=== PATIENT | female | born 1950 | race Caucasian/White ===

== ENCOUNTER → 2017-09-15 09:36 | Outpatient (CLI) | payer MEDICARE, SELFPAY ==
--- NOTE | 2017-09-15 09:40 | CDU_ITS ---
Reason For Study: Carotid stenosis Rt. Velocities/BP Lt. Velocities/BP Prox CCA 96.7/22.9 cm/sec. Prox CCA 97.9/28.7 cm/sec. Mid CCA 84.4/17.6 cm/sec. Mid CCA 98.5/26.4 cm/sec. Dist CCA 72.7/22.3 cm/sec. Dist CCA 93.8/28.1 cm/sec. Prox ICA 70.4/21.1 cm/sec. Prox ICA 72.1/21.7 cm/sec. Mid ICA 71.5/23.5 cm/sec. Mid ICA 89.7/28.7 cm/sec. Dist ICA 77.4/26.4 cm/sec. Dist ICA 79.7/25.8 cm/sec. Rt. ICA/CCA = .92. Lt. ICA/CCA = .91. Prox ECA 95.6/18.8 cm/sec. Prox ECA 91.5/16.4 cm/sec. Rt. Vert. 31.2/7.1 cm/sec. Lt. Vert. 50.4/21.1 cm/sec. Right Extracranial There is intimal thickening but no significant atherosclerotic plaque noted in the right common carotid artery. There is intimal thickening but no significant atherosclerotic plaque noted in the right internal carotid artery. There is intimal thickening but no significant atherosclerotic plaque noted in the right external carotid artery. Antegrade flow is noted in the right vertebral artery. Left Extracranial There is intimal thickening but no significant atherosclerotic plaque noted in the left common carotid artery. There is intimal thickening but no significant atherosclerotic plaque noted in the left internal carotid artery. There is intimal thickening but no significant atherosclerotic plaque noted in the left external carotid artery. Antegrade flow is noted in the left vertebral artery. There is heterogeneous, irregular atherosclerotic plaque noted in the left bulb. Procedure Carotid Duplex [id number]. Exam performed in department. Interpretation Summary Mild (<50%) stenosis right extracranial internal carotid. Mild (<50%) stenosis left extracranial internal carotid. Flow within the vertebral arteries is antegrade bilaterally. Ordering Physician: Rafaela Baron Referring Physician: Rafaela Baron Performed By: Dennise Wills RVT
== END ==
PROVIDERS: Family Provider Internal Medicine; PCP Internal Medicine; Visit Provider Internal Medicine
DX: I65.22 Occlusion and stenosis of left carotid artery (principal)
CPT/HCPCS: 93880

== ENCOUNTER → 2017-11-02 08:50 | Outpatient (CLI) | payer MEDICARE, SELFPAY ==
--- NOTE | 2017-11-02 08:52 | BI_ITS ---
MAMMOGRAPHY - BILATERAL SCREENING 3-D O[place] SYNTHESIS REASON FOR EXAM: Female, 67 years old. Bilateral Screening 3-D tomosynthesis PERTINENT HISTORY: No significant family history. TECHNIQUE: 2-D mammograms and 3-D [place] synthesis of the breast (s) were performed. CAD was performed. COMPARISON: October 31, 2016. FINDINGS: The breast composition is composed of scattered fibroglandular density. Scattered benign calcifications are seen. No dense spiculated masses or suspicious microcalcifications are identified. No architectural distortion is identified. There is no skin thickening or retraction. There are typically benign appearing calcifications bilaterally. There has been no significant change since the prior study. BI/SCREENING MAMM (CAD), BILAT IMPRESSION: No mammographic signs of malignancy. Routine yearly mammograms recommended. ASSESSMENT CATEGORY: BIRADS Category 2: Benign. A letter regarding these results will be sent to the patient by the facility within 30 days. FOLLOW UP RECOMMENDATION: Yearly follow up mammogram recommended. (A) Approximately 10% of breast cancers are not detected by mammography. A normal mammogram should not delay biopsy of a clinically suspicious abnormality. Electronically Signed: René Saini MD at 10:18 EDT , Service support ,
== END ==
PROVIDERS: Family Provider Internal Medicine; PCP Internal Medicine; Visit Provider Internal Medicine
DX: Z12.31 Encounter for screening mammogram for malignant neoplasm of breast (principal)
CPT/HCPCS: 77063; 77067

== ENCOUNTER → 2018-07-12 10:34 | Outpatient (CLI) | payer MEDICARE, SELFPAY ==
--- NOTE | 2018-07-12 10:40 | RAD_ITS ---
STUDY: X-RAY - RIGHT FOOT CLINICAL: Female, 67 years old. Pain at the base of the fifth toe TECHNIQUE: 3 view(s) of the foot. COMPARISON: None. FINDINGS: Normal talus, calcaneus, and tarsal bones. Normal visualized subtalar, talonavicular, calcaneocuboid, tarsal and tarsometatarsal articulations. Normal metatarsi. There is degenerative arthrosis of the metatarsophalangeal joint of the hallux . Normal tibial and fibular sesamoid bones. Normal interphalangeal joint of the great toe. Normal phalanges of the great toe. Normal second through fifth metatarsophalangeal joints. Normal interphalangeal joints and phalanges of the lesser toes. The soft tissue structures are unremarkable. RAD/Foot min 3 Views IMPRESSION: 1. No fracture or erosive process. 2. Osteoarthrosis of the first MTP joint. Electronically Signed: Ja Jung MD at 13:04 EST , Service support ,
== END ==
PROVIDERS: Family Provider Internal Medicine; PCP Internal Medicine; Visit Provider Internal Medicine
DX: M79.671 Pain in right foot (principal)
CPT/HCPCS: 73630

== ENCOUNTER → 2018-10-18 | Outpatient (CLI) | payer MEDICARE, SELFPAY ==
--- NOTE | 2018-10-18 12:58 | CDU_ITS ---
Reason For Study: Stenosis Rt. Velocities/BP Lt. Velocities/BP Prox CCA 92/18 cm/sec. Prox CCA 100/25 cm/sec. Mid CCA 76/15 cm/sec. Mid CCA 84/20 cm/sec. Dist CCA 64/18 cm/sec. Dist CCA 83/21 cm/sec. Prox ICA 59/18 cm/sec. Prox ICA 68/16 cm/sec. Mid ICA 71/23 cm/sec. Mid ICA 82/25 cm/sec. Dist ICA 66/23 cm/sec. Dist ICA 79/30 cm/sec. Rt. ICA/CCA = 0.9. Lt. ICA/CCA = 1.0. Prox ECA 95/12 cm/sec. Prox ECA 87/8 cm/sec. Rt. Vert. 33/6 cm/sec. Lt. Vert. 81/22 cm/sec. Right Extracranial There is intimal thickening but no significant atherosclerotic plaque noted in the right common carotid artery. There is homogeneous, smooth atherosclerotic plaque noted in the right internal carotid artery. There is intimal thickening but no significant atherosclerotic plaque noted in the right external carotid artery. Antegrade flow is noted in the right vertebral artery. Left Extracranial There is intimal thickening but no significant atherosclerotic plaque noted in the left common carotid artery. There is heterogeneous, irregular atherosclerotic plaque noted in the left internal carotid artery. There is no significant atherosclerotic plaque noted in the left external carotid artery. Antegrade flow is noted in the left vertebral artery. Procedure Carotid Duplex [id number]. Exam performed in department. Interpretation Summary Mild (<50%) stenosis right extracranial internal carotid. Mild (<50%) stenosis left extracranial internal carotid. Flow within the vertebral arteries is antegrade bilaterally. Ordering Physician: Rafaela Baron Referring Physician: Rafaela Baron Performed By: Raquel Smith, CELY, RVT
== END | disposition home or self-care (01) ==
LOC: CVS 12:50
PROVIDERS: Family Provider Internal Medicine; PCP Internal Medicine; Referring Provider Internal Medicine; Visit Provider Internal Medicine
DX: I65.22 Occlusion and stenosis of left carotid artery (principal)
CPT/HCPCS: 93880

== ENCOUNTER → 2018-11-11 | Outpatient (CLI) | payer MEDICARE, SELFPAY ==
--- NOTE | 2018-11-11 11:55 | BI_ITS ---
MAMMOGRAPHY - BILATERAL SCREENING REASON FOR EXAM: Female, 68 years old. Routine annual screening examination. PERTINENT HISTORY: Non-contributory. TECHNIQUE: Digital bilateral breast paulette (3D mammographic acquisition) in the CC and MLO projections. 2-D mediolateral oblique (MLO) and craniocaudad (CC) views of both breasts were obtained. CAD: Full Field Digital Mammography with Computer Added Detection was performed. COMPARISON: Comparison is made with prior study dated November 02, 2017 and October 31, 2016. FINDINGS: Breast Composition: There are scattered areas of fibroglandular density. There are no dominant masses or suspicious calcifications. Stable scattered secretory calcifications. No other significant abnormalities are identified. There has been no significant change since the prior study. BI/SCREENING MAMM (CAD), BILAT IMPRESSION: Stable bilateral screening mammogram. Yearly follow-up mammogram recommended. (A) ASSESSMENT CATEGORY: BIRADS Category 2: Benign. A letter regarding these results will be sent to the patient by the facility within 30 days. Approximately 10% of breast cancers are not detected by mammography. A normal mammogram should not delay biopsy of a clinically suspicious abnormality. [id number] Electronically Signed: Owen Whiting, at 13:46 EDT , Service support ,
--- NOTE | 2018-11-15 09:16 | CA.SCORE ---
Calcium Scoring Date of Study:: 11/11/18 Coronary Calcium Scoring: High-resolution Computed Tomographic imaging of the chest was performed on [11/11/2018], with particular attention paid to the coronary arteries. Images from the examination were analyzed for the presence and extent of coronary artery calcification , using coronary calcium quantification software. The patient tolerated the procedure well and there were no complications. The results of the coronary calcification analysis are provided below. - Findings Left Main (LM): 271 Left Anterior Descending (LAD): 336 Left Circumflex (LCX): 86 Right Coronary Artery (RCA): 453 Total Agatston Score: 1,146 - Conclusion Calcium Scoring Interpretation: Calcium Score Interpretation 0 No identifiable atherosclerotic plaque. Very low cardiovascular disease risk. <5% chance of presence coronary artery disease A Negative Examination 1-10 Minimal Plaque burden. Significant coronary artery disease very unlikely. 11-100 Mild plaque burden. Likely mild or minimal coronary atherosclerosis. 101-400 Moderate plaque burden Moderate non-obstructive coronary artery disease highly likely. Over 400 Extensive plaque burden. High likelihood of at least one significant coronary stenosis (>50% diameter) The total calcium score (1146) is above the 90th percentile for women between the ages of 65 and 69. (Exact percentile calculated to be 99%; this means 98% of the population has a lower calcium score and 1% of the population is a higher calcium score than this patient.) An evaluation of cardiac risk should include an assessment of all conventional risk factors, and the scores and percentile rankings reported herein should be evaluated in this context.
== END | disposition home or self-care (01) ==
PROVIDERS: Family Provider Internal Medicine; PCP Internal Medicine; Referring Provider Internal Medicine; Visit Provider Internal Medicine
DX: Z12.31 Encounter for screening mammogram for malignant neoplasm of breast (principal)
CPT/HCPCS: 77063; 77067

== ENCOUNTER → 2018-11-11 | Outpatient (CLI) | payer SELFPAY ==
--- NOTE | 2018-11-11 12:28 | CT_ITS ---
STUDY: CARDIAC CALCIUM SCORING - CT CHEST REASON FOR EXAM: Female, 68 years old. Coronary calcium screening, over read. RADIATION DOSAGE (If Supplied By Facility): DLP = ( 243.79 ) mGycm TECHNIQUE: Axial non-enhanced images were acquired through the heart for the sole purpose of measuring coronary artery calcium. Individualized dose optimization techniques were used for this CT. COMPARISON: None. FINDINGS: Upper abdomen exhibits no acute process. 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 These are typically of no consequence. Body wall soft tissues exhibit no acute process. Prominent osteopenia, thoracic kyphosis, mild multilevel thoracic spondylosis. No mediastinal mass or lymphadenopathy. Normal esophagus. Minimal sliding hiatal hernia. Evaluated portions of the lungs and airways exhibit no acute process. Aorta, nonaneurysmal ectasia of the ascending aorta and proximal arch 3.5 cm. Mild arch atherosclerosis. Pulmonary arteries, nondilated. Heart, no cardiomegaly, no pericardial effusion. Densely calcified focus within the apex of the left ventricle, not within the ventricular wall, measuring approximately 20 x 16 mm. This could be old calcified thrombus. There are prominent atherosclerotic calcifications of the left main bifurcation, proximal to mid LAD, proximal circumflex, moderately prominent in the proximal to mid RCA, diffusely within the distal RCA. Prominent coronary atherosclerosis. CT/Limited Chest CT w/CCTA IMPRESSION: Prominent three-vessel coronary atherosclerosis. The coronary calcium score is reported under separate cover with cardiology. Please see that report and recommendations. Densely calcified mass of the apex of the left ventricular chamber. Not within the wall. Possibly representing chronic calcified thrombus. Electronically Signed: Lambert Garcia MD at 15:46 EDT Tel , Service support ,
== END | disposition home or self-care (01) ==
LOC: CT 12:26
PROVIDERS: Family Provider Internal Medicine; PCP Internal Medicine; Referring Provider Internal Medicine; Visit Provider Internal Medicine
DX: E78.5 Hyperlipidemia, unspecified (principal)
CPT/HCPCS: 75571; 76380

== ENCOUNTER → 2018-12-13 | Outpatient (CLI) | payer MEDICARE, SELFPAY ==
[2018-11-23 14:02] VITALS: BMI 28.1
--- NOTE | 2018-12-13 13:47 | ECHOCS_ITS ---
Reason For Study: CAD/ASHD Procedure This was a 2D Doppler, Color Flow transthoracic echocardiogram. The study was technically difficult. Contrast injection was performed. Exam performed in department. Left Ventricle Mild concentric left ventricular hypertrophy. Possible calcified LV apical thrombus vs calcified papillary muscle apparatus along medial side of interventricular septum. The estimated ejection fraction is 55-60 %. Stage 1 diastolic dysfunction. Anterior [place] : Mildly hypokinetic. Right Ventricle Normal size and thickness. Normal systolic function. Atria Normal left atrium. Normal right atrium. Normal atrial septum. Mitral Valve The mitral valve is structurally normal. No prolapse or stenosis seen. Tricuspid Valve Normal tricuspid valve. Mild (1+) tricuspid valve insufficiency. Right ventricular systolic pressure estimated to be 28 mmHg. Aortic Valve Normal aortic valve. Trisinus/trileaflet aortic valve. Pulmonic Valve The pulmonic valve is not well visualized. Great Vessels Normal aortic root. Normal arch. Normal inferior vena cava. Inferior vena cava collapse with sniff. Pericardium/Pleural No pericardial effusion. Medication 22 gauge I.V. with prn adaptor inserted into right arm. Diluted definity 2ml given slow IV push to enhance endocardial definition. MMode/2D Measurements & Calculations LVIDd: 3.9 cm IVSd: 1.3 cm Ao root diam: 3.6 cm LVIDs: 2.5 cm LVPWd: 1.4 cm LA dimension: 3.9 cm FS: 37.1 % LAV(MOD-sp4): 29.9 ml LA A4 area: 13.9 cm2 Time Measurements MV dec time: 0.22 sec Doppler Measurements & Calculations MV E max fredrick: 65.4 cm/sec Lat Peak E' Fredrick: 10.1 cm/sec Med Peak E' Fredrick: 7.5 cm/sec MV A max fredrick: 87.0 cm/sec E/E' lat: 6.5 E/E' med: 8.7 MV E/A: 0.75 MV V2 max: 88.0 cm/sec MV P1/2t max fredrick: 67.4 cm/sec Ao V2 max: 122.8 cm/sec MV max P.1 mmHg MV P1/2t: 67.5 msec Ao max P.0 mmHg MV V2 mean: 45.4 cm/sec MV dec slope: 292.5 cm/sec2 Ao V2 mean: 81.5 cm/sec MV mean P.98 mmHg Ao mean P.0 mmHg MV V2 VTI: 24.4 cm MVA(P1/2t): 3.3 cm2 Ao V2 VTI: 25.7 cm LV V1 max: 86.3 cm/sec PA V2 max: 73.1 cm/sec TR max fredrick: 240.2 cm/sec LV V1 max P.0 mmHg TR max P.1 mmHg LV V1 mean P.5 mmHg LV V1 mean: 57.3 cm/sec LV V1 VTI: 19.9 cm Interpretation Summary The estimated ejection fraction is 55-60 %. Stage 1 diastolic dysfunction. Possible calcified LV apical thrombus vs calcified papillary muscle apparatus along medial side of interventricular septum. Mild (1+) tricuspid valve insufficiency. Right ventricular systolic pressure estimated to be 28 mmHg. The study was technically difficult. There is no comparison study available. Contrast injection was performed. Would consider a transesophageal echocardiogram if clinically indicated. Ordering Physician: Ross Raya Referring Physician: Rafaela Baron D.O. Performed By: Enrico Villarreal RCS
== END | disposition home or self-care (01) ==
LOC: CVS 13:46
PROVIDERS: Family Provider Internal Medicine; PCP Internal Medicine; Referring Provider Internal Medicine Cardiovascular Disease; Visit Provider Internal Medicine Cardiovascular Disease
DX: I25.10 Atherosclerotic heart disease of native coronary artery without angina pectoris (principal); R93.1 Abnormal findings on diagnostic imaging of heart and coronary circulation; E78.5 Hyperlipidemia, unspecified; I51.9 Heart disease, unspecified
CPT/HCPCS: 93306; Q9957; A4216; C8929

== ENCOUNTER → 2018-12-15 | Outpatient (CLI) | payer MEDICARE, SELFPAY ==
[2018-11-23 14:02] VITALS: BMI 28.1
--- NOTE | 2018-12-15 09:22 | STEWCON_ITS ---
Reason For Study: ASHD/CAD Stress Results Protocol: Mono Protocol WITH DEFINITY Maximum Predicted HR: 152 bpm Target HR: 129 bpm % Maximum Predicted HR: 91 % DurationHeart Rate Stage (mm:ss) (bpm) BP Comment BASELINE 67 128/78 STAGE 1 3:00 98 140/82 STAGE 2 3:00 131 158/82 STAGE 3 1:32 139 / RECOVERY 80 120/804CC DEFINITY USED TOTAL FOR TEST Stress Duration: 7:32 mm:ss Maximum Stress HR: 139 bpm Baseline Echocardiogram Findings The estimated ejection fraction is 65 %. Stress Echo Wall motion Data Resting WM Intermediate WM Stress WM Resting Wall Motion Wall Motion Stress No regional wall motion Posterior-Basal: Mildly abnormalities noted. hypokinetic. Infero-Basal: Mildly hypokinetic. Mid-anteroseptal : Mildly hypokinetic. EKG Data Normal intervals are noted. The baseline ECG displays normal sinus rhythm. The patient exercised according to the regular Mono protocol for a total duration of 7:32. The maximum heart rate attained was 157 beats per minute. This was 103% of maximum predicted heart rate. The patient exercised into stage 3 of the Mono protocol. The stress ECG displays diffuse abnormal ST segments. No clinical angina was noted. Interpretation Summary The estimated ejection fraction is 65 %. Abnormal, adequate treadmill echocardiogram. Positive for ischemia by both EKG and echocardiographic criteria. No anginal symptoms noted. Ventricular couplet noted. The patient appeared to develop [address] segment depression along the inferior leads at peak exercise which returned to normal by 50 seconds into recovery. In addition she appeared to develop mid anteroseptal, lateral and inferior hypokinesis at peak exercise. Imaging was somewhat problematic due to poor echo windows as well as what appears to be a calcified papillary muscle causing an acoustic shadow. Average exercise capacity for age. Appropriate blood pressure response to exercise. Test terminated due to dyspnea which may be an anginal equivalent. Final LVEF of 45%. No complications. The study was technically difficult. Contrast injection was performed. Ordering Physician: Ross Raya Referring Physician: Ross Raya Performed By: Natty Jones, CELY, RVT
== END | disposition home or self-care (01) ==
LOC: CVS 09:21
PROVIDERS: Family Provider Internal Medicine; PCP Internal Medicine; Referring Provider Internal Medicine Cardiovascular Disease; Visit Provider Internal Medicine Cardiovascular Disease
DX: I25.10 Atherosclerotic heart disease of native coronary artery without angina pectoris (principal); R93.1 Abnormal findings on diagnostic imaging of heart and coronary circulation; I51.9 Heart disease, unspecified; I65.22 Occlusion and stenosis of left carotid artery; E78.5 Hyperlipidemia, unspecified; I10 Essential (primary) hypertension
CPT/HCPCS: 93017; 93350; Q9957; A4216; C8928

== ENCOUNTER 2018-12-31 08:57 | Day surgery (SDC) | payer MEDICARE, SELFPAY ==
--- NOTE | 2018-11-23 02:24 | HP_ITS ---
HPI HPI History of Present Illness Surgical H&P: Yes Details: Mrs. Mccormack is a very pleasant 68-year-old diabetic female with a history of hypertension, hypercholesterolemia, mitral valve prolapse, no previous catheterization, lifelong non-smoker, peripheral vascular disease with less than 50% stenosis in bilateral internal carotids by carotid ultrasound on 10/18/2018. She has never had a heart catheterization, stress test, or been told she had a myocardial infarction. Patient is quite active, walking and riding her stationary bike on a regular basis, pretty much daily for about 45 minutes and has had no symptoms. She has had no deterioration in her exercise capacity, no exertional angina, chest pain, shortness of breath or dyspnea on exertion. After visiting Dr. Crandall she had recommended a wellness check including a ordinary calcium score. This was performed on 11/11/2018 which demonstrated a total calcium score of 1146. This included 271 in the left main, 336 in the LAD, 86 in the left circumflex, and 453 in the right coronary artery. In addition, on the CT over read, it was noted that she has a densely calcified focus in the apex of the left ventricle not within the ventricular wall measuring approximately 20 x 16 mm possibly representing an old calcified thrombus. They also noted significant calcifications in her coronary tree. Patient is taking and tolerating her medicines well. Of note, her mother had four-way bypass surgery at age 65 and is subsequently at age 72. Her father of old age in his 90s. No other family history of coronary disease In our office today her blood pressure is 130/80, pulse is 80 and regular. Her physical exam demonstrates clear lungs bilaterally, regular rate and rhythm, normal S1/S2, no S3 or S4. No murmurs are detected. EKG dated 11/16/2018 shows normal sinus rhythm, normal axis, normal intervals, no evidence of previous myocardial infarction or acute changes. Her lipids as of 10/05/2018 show an HDL of 56 and an LDL of 65. 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 Accompanied by: Is patient in pain?: No Allergies lisinopril Adverse Reaction (Intermediate, Verified 11/23/18 14:03) cough Medications aspirin 81 mg tablet,delayed release 81 mg PO DAILY 11/18/18 [History Confirmed 11/18/18] cholecalciferol (vitamin D3) 2,000 unit capsule 4,000 unit PO DAILY cap 11/18/18 [History Confirmed 11/18/18] lactobacillus combination no.9 4 billion cell capsule 4,000 mmu cells PO DAILY 11/18/18 [History Confirmed 11/18/18] losartan 50 mg tablet 50 mg PO BID tab 11/18/18 [History Confirmed 11/18/18] omega-3 fatty acids 1,000 mg capsule 1,000 mg PO DAILY 11/18/18 [History Confirmed 11/18/18] pravastatin 40 mg tablet 40 mg PO DAILY 11/18/18 [History Confirmed 11/18/18] [facility] Medical History Atherosclerotic heart disease of [place] coronary artery without angina pectoris (Chronic) Mass of left cardiac ventricle (Acute) Stenosis of left carotid artery (Chronic) Hyperlipidemia (Chronic) Hypertension (Chronic) Agatston coronary artery calcium score greater than 400 (Acute) Surgical History History of colonoscopy (Acute 12/2008) History of bilateral cataract extraction (Chronic) History of surgical procedure on eye proper using laser (Chronic) History of tubal ligation (Chronic) Family History Father , Age 92 Hypotension Mother , age 74 of CHF S/P CABG x 4, Onset Age: 65 Diabetes Hypertension Thyroid disorder Myocardial infarction CAD (coronary artery disease) Brother Hypertension Rheumatoid arthritis Social History Smoking Status: Never smoker ROS Const Const: Positive for other (Referred by Dr. Crandall for high coronary calcium score. Feels well.); negative for fatigue, weakness, body ache, fever(s), headache(s), chills, frequent falls, night sweats, daytime sleepiness, difficulty sleeping, excessive sweating, weight gain, weight loss, increased appetite, poor appetite or anorexia Eyes Eyes: Negative for blind spots, loss of peripheral vision, transient loss of vision, blurry vision, change in vision, double vision, floaters, tunnel vision or other ENT ENT: Negative for headache(s), dizziness, hearing loss, tinnitus, Nosebleed/epistaxis, balance problems, post nasal drip, lip swelling, tongue swelling, bleeding gums, hoarseness, neck pain, dry mouth or other Cardio Chest Pain: No Palpitations: No Edema: None Muscle aches with walking: None Resp Respiratory: Positive for other (Lungs clear throughout); negative for SOB with activity, SOB at rest, SOB orthopnea\SOB lying down, Cough, Coughing up blood/hemoptysis, chest congestion, pain on inspiration, snoring, stridor, wheezing, crackles or paroxysmal nocturnal dyspnea GI GI: Negative nausea, vomiting, heartburn, constipation, belching, bloating, cramping, vomiting blood/hematemesis, bright, red blood in stools, black,tarry stools, loose stools, Difficulty Swallowing or other : Negative for hematuria, frequent nighttime urination/ nocturia, erectile dysfunction or abnormal vaginal bleeding Musc Musc: Negative for muscle aches/ myalgia, muscle weakness, joint pain or balance problems Skin Skin: Negative redness, non-healing lesions, rash, unusual bruising, skin ulcer, wounds, jaundice or other Neuro Neuro: Negative for dizziness, lightheadedness, near syncope, syncope, orthostatic symptoms, frequent falls, headache(s), weakness, confusion, memory loss, restless legs, blurry vision, double vision, vertigo, seizures, lack of coordination or other [place] Hematologic/Lymphatic: Negative for easy bleeding, easy bruising, enlarged lymph nodes or other Endo Endo: Negative for fatigue, cold intolerance, heat intolerance, excessive sweating, flushing, increased thirst/drinking, increased hunger, hair loss, hair growth or other Psych Psych: Negative for anxiety, depression, thoughts of harming anyone, thoughts of harming yourself, visual hallucinations, panic attacks or audible hallucinations Allergy Allergy/Immunology: Negative for throat swelling, Negative for tongue swelling, Negative for hives, Negative for rash, Negative for lip swelling Cardiology Exam Const Appearance: cooperative, healthy appearing and no acute distress Nutritional Appearance: well nourished Orientation: alert, oriented x3 and oriented to person Head Head: normal to inspection, normocephalic and atraumatic Nose: external nose normal Face and Sinus: face symmetric Mouth: oral mucosae normal Eyes General: appearance normal, both eyes and all related structures Eyelids: eyelids normal Conjunctivae: conjunctivae normal Pupils: PERRL and normal by confrontation EOM: EOM intact bilaterally Neck Neck: normal visual inspection and full ROM Carotids: normal carotid upstroke Chest Chest inspection: normal inspection of the chest Auscultation: Bilateral: Clear to Auscultation Cardio Palpation: normal PMI Rate: regular rate Rhythm: regular rhythm Heart sounds: S1 normal and S2 normal GI GI: normal to inspection, no hepatosplenomegaly and bowel sounds present Neuro General: alert, awake, oriented x3, CN's II-XI intact bilaterally and moves all extremities Skin Skin: no rashes or lesions noted Extremities Pulses: Normal: Right Femoral Pulse, Left Femoral Pulse, Right Dorsalis Pedis Pulse, Left Dorsalis Pedis Pulse, Right Posterior Tibial Pulse, Left Posterior Tibial Pulse, Right Radial Pulse, Left Radial Pulse Lower Extremity Edema: None: Bilateral Psych Psychological: normal affect Assessment & Plan 1. Atherosclerotic heart disease of [place] coronary artery without angina pectoris I25.10 Prominent atherosclerotic calcifications of let main bifurcation,proximal to mid LAD, proximal CX, moderately prominent in the proximal to mid RCA, diffusely within the distal RCA per Chest CT done 11/11/2018 Plan 1. Coronary artery disease: Patient is a prominent fan a history of coronary disease in her mother at age 65 he required four-vessel bypass surgery, and a significant calcium score and asymptomatic 68-year-old female. In addition her over read of her calcium score suggest she may have a calcified thrombus in the apex of her left ventricle indicating she may have had previous myocardial damage that that may have been asymptomatic in this diabetic female. I recommended the patient undergo a 2D echo with Doppler to determine if she has any LV dysfunction particularly the anterior apical wall. If this is found, I would not pursue stress testing but rather would go to direct coronary catheterization to assess her coronary artery disease. She already has high risk for coronary artery disease given her very high calcium score. If however her LV function is normal, and no such LV apical thrombus is noted, I would recommend that she undergo a treadmill echocardiogram to assess her exercise capacity, blood pressure response to exercise, as well as ischemia. If her stress test is grossly abnormal she may require diagnostic coronary angiogram. In the meantime she will continue baby aspirin, losartan. Orders Orders: Echo Complete Today Stress Test Echo W/Contrast Today 2. Hyperlipidemia E78.5 Plan 2. Hyperlipidemia: Given the patient's coronary calcium score and peripheral vascular disease I recommend aggressive LDL reduction. Her LDL and HDL appear to be very well controlled with Pravachol. Continue present management. 3. Return office in 6 months. This note was generated using a voice recognition system and there may be incorrect words, spelling or punctuation that were not noted when reviewing the office note prior to saving. Orders Orders: Echo Complete Today Stress Test Echo W/Contrast Today Plan Detail Other Orders Orders: Echo Complete Today I51.9, R93.1 Stress Test Echo W/Contrast Today I10, I51.9, I65.22, R93.1 Follow Up +6M ([place]) Coding Level of Care Code Off vis,new,level 4 Diagnoses Atherosclerotic heart disease of [place] coronary artery without angina pectoris I25.10 Hyperlipidemia E78.5 Coding Level of Care Code Off vis,new,level 4 Diagnoses Atherosclerotic heart disease of [place] coronary artery without angina pectoris I25.10 Hyperlipidemia E78.5 Supplemental Info Supplemental Information Diagnostics Coronary Angiography CT 11/15/18 11/23/18 3643 <Electronically signed by Ross Raya MD> Date Ross Raya MD
[2018-11-23 14:02] VITALS: BMI 28.1
[2018-12-17 10:05] LABS: Hematocrit 44.6 % (37-47); Mean Corp Hgb Conc 33.6 g/gl (32-36); Mean Corpuscular Volume 89.2 fL (81-99); Mean Platelet Vol. 10.4 fl (6.2-12.0); Platelet Count 221 K/mm3 (150-450); RBC Distribution Width CV 12.9 % (11.6-14.6); RBC Distribution Width SD 41.9 fl (35.1-43.9)
[2018-12-17 10:10] LABS: Partial Thromboplast Time 26.5 Seconds (24.1-36.2); Prothrombin Time (Protime)PT. 13.2 SECONDS (11.7-14.9); Scan Indicated on CBC? Y/N NO
[2018-12-17 10:34] LABS: Anion Gap 5 (5-15); BUN 18 mg/dL (7-18); BUN/Creat Ratio 28.3 RATIO (10-20); Calcium,Total 9.2 mg/dL (8.5-10.1); Chloride 108 mmol/L (98-107); Creatinine, Serum 0.64 mg/dL (0.55-1.02); EST Glomerular Filtration Rate 99 mL/min (>60); Est Glom Filt Rate - Afr Amer 119 mL/min (>60); Glucose 103 mg/dL (74-106); Potassium 3.8 mmol/L (3.5-5.1); Sodium Level 139 mmol/L (136-145)
[2018-12-30 08:40] VITALS: BMI 28.1
[2018-12-31] VITALS (18 sets, daily range): BP systolic 103–135; BP diastolic 43–64; PULSE 58–72; RESP 11–18; TEMP 36.8–37.1; O2SAT 91–96; BMI 28.1; BMI 28.0
--- NOTE | 2018-12-31 08:58 | ECHOTEE_ITS ---
Reason For Study: Abn Echo Findings, Mass seen on CTA Medication STARR probe passed without difficulty. No complications were noted. Cetacaine Topical [place] given X2 orally. Versed 2 mg given slow IVP. Fentanyl 25 mcg given slow IVP. Performed a rapid injection of agitated mix of 9 cc saline and 1cc air to assess for atrial septal defect. [id number] gargled and swallowed. Left Ventricle Normal size and thickness. The estimated ejection fraction is 65 %. No regional wall motion abnormalities noted. Right Ventricle Normal size and thickness. The right ventricular wall motion is normal. Atria Normal atrial septum. Bubble contrast study negative for right to left interatrial shunt. Normal left atrium. No thrombus is detected in the left atrial appendage. Normal right atrium. Mitral Valve The mitral valve is structurally normal. No prolapse or stenosis seen. Probable calcified papillary muscles. Trivial mitral valve insufficiency. Tricuspid Valve Normal tricuspid valve. Trivial tricuspid valve insufficiency. Right ventricular systolic pressure estimated to be 23 mmHg. Aortic Valve Trisinus/trileaflet aortic valve. Normal aortic valve. Pulmonic Valve Normal pulmonic valve. Vessels Normal aortic root. Normal arch. The pulmonary is not well visualized. Pulmonary venous flow normal. Doppler Measurements & Calculations TR max artur: 213.2 cm/sec Interpretation Summary There is no comparison study available. The estimated ejection fraction is 65 %. Bubble contrast study negative for right to left interatrial shunt. No thrombus is detected in the left atrial appendage. Trivial mitral valve insufficiency. Trivial tricuspid valve insufficiency. Right ventricular systolic pressure estimated to be 23 mmHg. Probable calcified papillary muscles. Ordering Physician: Ross Raya Referring Physician: Ross Raya Performed By: Raquel Smith, RDCS, RVT
--- NOTE | 2018-12-31 09:39 | HP.PCM_ITS ---
History and Physical Date of Admission: 12/31/18 HPI HPI History of Present Illness Surgical H&P: Yes Details: Mrs. Mccormack is a pleasant 68-year-old diabetic female with a history of hypertension, hypercholesterolemia, mitral valve prolapse. She is a lifelong non-smoker. She has peripheral vascular disease with less than 50% stenosis in bilateral internal carotids by carotid ultrasound on 10/18/2018. After visiting Dr. Baron she had recommended a wellness check including an ordinary calcium score. This was performed on 11/11/2018 which demonstrated a total calcium score of 1146. This included 271 in the left main, 336 in the LAD, 86 in the left circumflex, and 453 in the right coronary artery. In addition, on the CT over read, it was noted that she has a densely calcified focus in the apex of the left ventricle not within the ventricular wall measuring approximately 20 x 16 mm possibly representing an old calcified thrombus. They also noted significant calcifications in her coronary tree. Of note, her mother had four-way bypass surgery at age 65 and is subsequently at age 72. Her father of old age in his 90s. No other family history of coronary disease. She denies chest, arm, jaw, or neck discomfort. Her exercise tolerance is stable. She denies symptoms of CHF, palpitations, lightheadedness, dizziness, n ear syncope, or syncopal episodes. She denies edema or claudication issues. She denies orthopnea, PND, fever, chills, blood in urine, blood in stool, myalgia, or unexplainable fatigue. Intake Vital Signs: See EMR 12/31/18 Body Mass Index (BMI) 28.1 Intake Visit Reasons: STARR, LHC, and RHC. Allergies lisinopril Adverse Reaction (Intermediate, Verified 12/30/18 08:43) cough [facility] Medical History (Updated 12/31/18 @ 08:46 by FE Monique) Abnormal stress test (Acute) Atherosclerotic heart disease of [place] coronary artery without angina pectoris (Chronic) Mass of left cardiac ventricle (Acute) Stenosis of left carotid artery (Chronic) Hyperlipidemia (Chronic) Hypertension (Chronic) Agatston coronary artery calcium score greater than 400 (Acute) Surgical History (Updated 11/18/18 @ 09:30 by Holly Graff) History of colonoscopy (Acute 12/2008) History of bilateral cataract extraction (Chronic) History of surgical procedure on eye proper using laser (Chronic) History of tubal ligation (Chronic) Family History (Updated 11/18/18 @ 09:20 by Holly Graff) Father , Age 92 Hypotension Mother , age 74 of CHF S/P CABG x 4, Onset Age: 65 Diabetes Hypertension Thyroid disorder Myocardial infarction CAD (coronary artery disease) Brother Hypertension Rheumatoid arthritis Social History Smoking Status: Never smoker ROS Const Const: Negative for fatigue, weakness, body ache, fever(s) or chills ENT ENT: Negative for dizziness Cardio Chest Pain: No Palpitations: No Edema: None Muscle aches with walking: None Resp Respiratory: Negative for SOB with activity, SOB at rest, SOB orthopnea\SOB lying down or paroxysmal nocturnal dyspnea GI GI: Negative nausea, vomiting blood/hematemesis, bright, red blood in stools or black,tarry stools : Negative for hematuria or frequent nighttime urination/ nocturia Musc Musc: Negative for muscle aches/ myalgia Skin Skin: Negative non-healing lesions or rash Neuro Neuro: Negative for dizziness, lightheadedness, near syncope, syncope, orthostatic symptoms or weakness Endo Endo: Negative for fatigue Allergy Allergy/Immunology: Negative for rash Cardiology Exam Const Appearance: cooperative, healthy appearing and no acute distress Nutritional Appearance: well nourished Orientation: alert, oriented x3 and oriented to person Head Head: normal to inspection, normocephalic and atraumatic Nose: external nose normal Face and Sinus: face symmetric Mouth: oral mucosae normal Eyes General: appearance normal, both eyes and all related structures Eyelids: eyelids normal Conjunctivae: conjunctivae normal Pupils: PERRL and normal by confrontation EOM: EOM intact bilaterally Neck Neck: normal visual inspection and full ROM Carotids: normal carotid upstroke Chest Chest inspection: normal inspection of the chest Auscultation: Bilateral: Clear to Auscultation Cardio Palpation: normal PMI Rate: regular rate Rhythm: regular rhythm Heart sounds: S1 normal and S2 normal; negative rub, gallop or murmur GI GI: normal to inspection, no hepatosplenomegaly and bowel sounds present Neuro General: alert, awake, oriented x3, CN's II-XI intact bilaterally and moves all extremities Skin Skin: no rashes or lesions noted Extremities Pulses: Normal: Right Femoral Pulse, Left Femoral Pulse, Right Dorsalis Pedis Pulse, Left Dorsalis Pedis Pulse, Right Posterior Tibial Pulse, Left Posterior Tibial Pulse, Right Radial Pulse, Left Radial Pulse Lower Extremity Edema: None: Bilateral Psych Psychological: normal affect Assessment & Plan 1. Abnormal stress test R94.39 Plan - FE Monique Her stress echocardiogram from 12/15/2018 was considered to be an abnormal, adequate, treadmill echocardiogram. This was positive for ischemia by both ECG and echocardiographic criteria. Her final LVEF was noted be 45%. She will proceed with a left and right heart catheterization for further assessment. Based on results further recommendation will be made. 2. Atherosclerosis of [place] coronary artery of [place] heart without angina pectoris I25.10 Prominent atherosclerotic calcifications of let main bifurcation,proximal to mid LAD, proximal CX, moderately prominent in the proximal to mid RCA, diffusely within the distal RCA per Chest CT done 11/11/2018 Plan - FE Monique As noted above her most recent stress echocardiogram was noted to be abnormal. Her echocardiogram from December 2018 showed ejection fraction 55-60% and stage I diastolic dysfunction. She will proceed with left and right heart catheterization. 3. Mass of left cardiac ventricle I51.9 Noted on limited chest CTA: 20 X 16 mm, possible calcified thrombus. Plan - FE Monique Both her CT scan from November 2018 and echocardiogram from December 2018 make mention of an LV apical thrombus. The origin of this is unclear at this time. She will proceed with a transesophageal echocardiogram for further assessment. Based on results further recommendation will be made. 4. Essential hypertension I10 Plan - FE Monique Patient's blood pressure is well-controlled. We will continue to monitor. We will not make any medication regimen changes. 5. Hyperlipidemia, unspecified hyperlipidemia type E78.5 Plan - FE Monique She will continue current statin medication. 6. Agatston coronary artery calcium score greater than 400 R93.1 Calcium score 453 which = extensive plaque burden Plan - FE Monique As noted above she will proceed with left and right heart catheterization for further evaluation. Plan Detail Additional Comments - FE Monique Thank you for allowing us to participate in the patients plan of care, if you have any questions please do not hesitate to call. This note was generated using a voice recognition system and there may be incorrect words, spelling or punctuation that were not noted when reviewing the office note prior to saving. Supplemental Info Supplemental Information Carotid duplex ultrasound from 10/18/2018: Interpretation Summary Mild (<50%) stenosis right extracranial internal carotid. Mild (<50%) stenosis left extracranial internal carotid. Flow within the vertebral arteries is antegrade bilaterally. Coronary angiography CT scan from 11/15/2018: - Findings Left Main (LM): 271 Left Anterior Descending (LAD): 336 Left Circumflex (LCX): 86 Right Coronary Artery (RCA): 453 Total Agatston Score: 1,146 Echocardiogram from 12/13/2018: Interpretation Summary The estimated ejection fraction is 55-60 %. Stage 1 diastolic dysfunction. Possible calcified LV apical thrombus vs calcified papillary muscle apparatus along medial side of interventricular septum. Mild (1+) tricuspid valve insufficiency. Right ventricular systolic pressure estimated to be 28 mmHg. The study was technically difficult. There is no comparison study available. Contrast injection was performed. Would consider a transesophageal echocardiogram if clinically indicated. Stress echocardiogram from 12/15/2018: Interpretation Summary The estimated ejection fraction is 65 %. Abnormal, adequate treadmill echocardiogram. Positive for ischemia by both EKG and echocardiographic criteria. No anginal symptoms noted. Ventricular couplet noted. The patient appeared to develop [address] segment depression along the inferior leads at peak exercise which returned to normal by 50 seconds into recovery. In addition she appeared to develop mid anteroseptal, lateral and inferior hypokinesis at peak exercise. Imaging was somewhat problematic due to poor echo windows as well as what appears to be a calcified papillary muscle causing an acoustic shadow. Average exercise capacity for age. Appropriate blood pressure response to exercise. Test terminated due to dyspnea which may be an anginal equivalent. Final LVEF of 45%. No complications. The study was technically difficult. Contrast injection was performed. Diagnostics Echocardiogram 12/13/18 Stress Echocardiogram 12/15/[address] 11/15/18
--- NOTE | 2018-12-31 11:45 | CL.I_ITS ---
Patient Name: SAVITA MONGE Study Date: 12/31/2018 Performing: Ross Raya MD Ht: 68.11 inches 173 cm : 1950 Wt: 185.19 lbs 84 kg Age: 68 Gender: female BSA: 1.98 PROCEDURE(S) PERFORMED QU18-KSI/LHC/COR/LV [id number] W OR WO PTCA, SINGLE CORONARY ARTERY CLINICAL PROFILE AND CO-MORBIDITIES Indications: Suspected CAD, Other;abnl stress echo, abnl coronary calcium score Heart Failure: None Stress/Imaging Date: 12/15/2018 Stress Echocardiogram: Positive Intermediate Risk Angina Classification Anginal Classification w/in 2 Weeks: No symptoms CAD Presentations: No Sxs, no angina. Comorbidities/Risk Factors: Hypertension Dyslipidemia CONCLUSIONS Non obstructive coronary arteries Perserved Left Ventricular systolic function with normal EDP Single vessel CAD of the mid LAD The patient has normal pulmonary hemodynamics. Successful PTCA/VENKATA mid LAD with a 2.5 x 20 Promus Synergy; 75%-->0%, no dissection. 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 Raya Successful Mynx closure DESCRIPTION OF PROCEDURE The patient arrived to the procedure lab. The risks and benefits of the procedure as well as a full d escription of our services here and lack of surgical backup were fully explained to the patient and/o r their significant other prior to the catheterization. The Timeout was completed, verifying the nadja ect patient and procedure. The patient's procedural site was prepped and draped in the usual fashion. Local anesthetic was given subcutaneously to right groin region with Lidocaine 2%. Using a modified Seldinger technique, arterial access was obtained via the right femoral artery, a 4Fr sheath was inse rted. Venous access was obtained via the right femoral vein, a 7Fr sheath was inserted. A 7Fr thermal dilution catheter was inserted and right heart pressures were recorded, it was then advanced to PA p osition for cardiac outputs. Thermal dilution cardiac outputs were then recorded. O2 saturations were then obtained. LV to AO pullback pressures were then recorded. Simultaneous pressures were then recorded. The Thermal dilution catheter was then removed. Left Coronary Artery selective an giography was performed in multiple views using a 4 Fr. JL5 catheter. Right Coronary Artery selective angiography was then performed in multiple views using a 4 Fr. 3DRC catheterThe images were reviewed and options discussed. A decision was then made to proceed with an Intervention, IVUS or other adjun ct procedure. Arterial sheath was exchanged for a 6 Fr Sheath. EBU 3.75 Guide catheter was inserted and engaged into the LCA. bmw Guide wire was advanced to the LAD. 2.0 x 12 emerge Balloon catheter was advanced across lesion in the LAD, mid. PTCA balloon inflated at 6 atms for 8 secs. PTCA balloon inflated at 1 0 atms for 7 secs. 2.5 x 20 synergy Drug Eluting stent was advanced across the lesion in the LAD, mid . Angiogram performed post stent deployment. The arterial sheath was pulled and a Mynx closure lanny ce was deployed for hemostasis. The venous sheath was then pulled and manual compression applied unti l hemostasis achieved CORONARY ANGIOGRAPHY DOMINANCE: Right Dominant LEFT HEART ASSESSMENT Left Ventricular Ejection Fraction: by LV Gram 65 % Normal Left Ventricular systolic function LVEDP: 9 mmHg Probable calcified papillary muscles. Normal LV wall motion RIGHT HEART ASSESSMENT Thermal CO: 5.52 Thermal CI: 2.79 Nathan CO: 5.87 Nathan CI: 2.96 PW: 8/9 5 PA: 15/5 10 RV: 22/-3 1 RA: 9/2 0 PVR: 72 Right Heart pressures - normal LEFT MAIN: Mild calcification, Angiographically normal LEFT ANTERIOR DESCENDING ARTERY: MID LAD: 75 % Stenosis CIRCUMFLEX ARTERY: PROX CIRC: Mild luminal irregularities less than 30% RIGHT CORONARY ARTERY: MID RCA: Mild luminal irregularities less than 30% INTERVENTION INFORMATION LESION SITE: LAD (Mid) Lesion Complexity: High/C, lesion at bifurcation: No, thrombus present: No, lesion length: 20 mm, cul prit lesion: Yes Pre Stenosis: 75 % Pre intervention ROBERTO flow: 3 PROCEDURE: Drug Eluting Stent with pre dilatation. Post Stenosis: 0 % Post intervention ROBERTO flow: 3 Lesion Devices: [place] [employer] Diagnosticstronic 6 Fr EBU3.75 100cm Guide Catheter [place] .014 BMW Bone Gap Straight 190cm Son Sci EMERGE MR 2.00x12 BALLOON Son Sci Synergy MR VENKATA 2.50x20 COMPLICATIONS No Complications PROCEDURE MEDICATIONS Heparin 6000 unit(s) IV 12/31/2018 11:14:43 Nitro 200 mcg IC 12/31/2018 11:23:05 Nitro 200 mcg IC 12/31/2018 11:23:05 IV Bolus: .9 NaCl 200 ml total 12/31/2018 11:33:14 SUMMARY OF HEMODYNAMIC DATA Time AIR REST ECG 09:19:25 ECG 10:37:02 RA 9/2 (0) 10:57:14 RV 22/-3, 1 10:57:34 PW 8/9 (5) PV 10:58:29 PA 15/5 (10) PA 10:58:43 LV 132/-11, 10 11:03:12 LV 134/-11, 9 11:03:19 LV 134/-13, 8 11:03:44 PW 20/20 (10) 11:03:44 LV 144/-11, 8 11:03:59 RV 26/0, 3 11:03:59 LV 137/-12, 12 11:05:24 LVp 135/-12, 11 11:05:27 AOp 131/62 (89) 11:05:32 AO 135/65 (94) SA 11:05:34 Type SV CO (l/m) CI (l/m/ HR Time AIR REST Thermal 80.00 5.52 2.79 69 09:19:25 Nathan 85.10 5.87 2.96 69 09:19:25 Label % O2 Pres/Loc Time AIR REST AO 95 PV 11:32:24 PA 73 PA 11:32:33 Signed By Ross Raya MD On 12/31/2018 11:44:35 Ross Raya MD
[2018-12-31 11:50] LABS: ACT Activated Clotting Time 202 sec (74-137)
[2018-12-31 11:50] LABS: Base Excess -4 mmol/L (-2 to +2); Bicarbonate 21.1 mmol/L (22-26); Blood Gas Specimen Type ART; PO2 75 mmHG (75-100); SO2 95 % (95-99); Total Carbon Dioxide 22 mmol/L; pCO2 36.9 mmHg (35-45); pH 7.36 (7.35-7.45)
[2018-12-31 11:50] LABS: Blood Gas Specimen Type VEN; VBG BASE EXCESS -3 mmol/L (-1.0-3.5); VBG Bicarbonate 22 mmol/L (22-26); VBG Oxygen Content 23 mmol/L (23-33); VBG PO2 39 mmHg (25-40); VBG SO2 72 % (50-70); VBG pCO2 38.8 mmHg (41-51); VBG pH 7.37 (7.32-7.42)
[2018-12-31 11:50] LABS: Blood Gas Specimen Type VEN; VBG BASE EXCESS -3 mmol/L (-1.0-3.5); VBG Bicarbonate 22 mmol/L (22-26); VBG Oxygen Content 23 mmol/L (23-33); VBG PO2 40 mmHg (25-40); VBG SO2 73 % (50-70); VBG pCO2 38.9 mmHg (41-51); VBG pH 7.36 (7.32-7.42)
[2018-12-31] MEDS: 0.9% Normal Saline 1,000 ML 150 ML IV (12:15)
--- NOTE | 2018-12-31 12:44 | PCM.DC.CCA ---
Discharge Diet: Low fat/ Low Cholesterol Discharge Activity: Return to Normal Activity May shower in (days): 1 - No tub baths for 5 days May resume sexual activity in: 1-2 weeks Lifting Restrictions: Do not lift anything greater than 10 pounds for 3 days Call your doctor if your incision/area has: Continuous Slow Oozing, Sudden Increased Bleeding, Increased Pain/ Swelling, Increased Redness, Foul Smelling Discharge, Swelling at the incision site Call your doctor if you observe: Fever of 101 or Higher, Shortness of breath, Chest pain Remove Dressing in (days):: 1 Cleanse incision/area with: Soap & Water Additional Instructions: You will continue with Aspirin therapy. He will remain on Plavix therapy for at least one year. If anyone asks you to stop this medication please call the [facility] Office at [phone]. You were also started on a new medication called metoprolol tartrate. This is a medication for heart disease. This does affect heart rate and blood pressure. You are scheduled for a post hospital follow-up on 01/20/2019 at 2:30 PM with Nurse Rebekah Dubois. If you have any questions or concerns please call our office at [phone]. Allergies/Adverse Reactions: Allergies lisinopril Adverse Reaction (Intermediate, Verified 12/30/18 08:43) cough Medications to take at Discharge aspirin 81 mg tablet,delayed release 81 mg PO DAILY 11/18/18 cholecalciferol (vitamin D3) 2,000 unit capsule 4,000 unit PO DAILY cap 11/18/18 lactobacillus combination no.9 4 billion cell capsule 4,000 mmu cells PO DAILY 11/18/18 losartan 50 mg tablet 50 mg PO BID tab 11/18/18 omega-3 fatty acids 1,000 mg capsule 1,000 mg PO DAILY 11/18/18 pravastatin 40 mg tablet 40 mg PO DAILY 11/18/18 clopidogrel 75 mg tablet 75 mg PO DAILY #30 tab 12/15/18 metoprolol tartrate 25 mg tablet 12.5 mg PO BID tab 12/31/18 Primary Care Physician: Rafaela Baron DO [Primary Care Provider] - Test Results: Test results from this visit will be discussed in further detail at your follow-up appointment, if applicable. Please Follow Up With: Jones Hurtado - Nurse Practitioner When: 01/20/2019 at 2:30 PM Proposed Discharge Date: 01/01/19 Cardiac Rehabilitation Info Cardiac Rehabilitation Program Information: Cardiac Rehabilitation is important for patients like you who are recovering from a heart problem. Cardiac rehabilitation programs are recognized as integral to the continued care of the patient with coronary heart disease. The cardiac rehabilitation program is designed to optimize a patient's physical, psychological, and social functioning. Health progressive care unit registered nurse work in cardiac rehabilitation programs and assist you with getting the treatments you need to get stronger and healthier - like exercise, healthy eating habits, and medications. Cardiac rehabilitation has been show to help people with heart problems live longer and have better life enjoyment than people who do not go to cardiac rehabilitation. Please contact the Cardiac Rehabilitation Program at [facility] at in two weeks if you have not heard from them.
--- NOTE | 2018-12-31 13:05 | EKG12_ITS ---
Test Reason : Blood Pressure : / mmHG Vent. Rate : 056 BPM Atrial Rate : 056 BPM P-R Int : 210 ms QRS Dur : 088 ms QT Int : 434 ms P-R-T Axes : -06 039 046 degrees QTc Int : 418 ms Sinus bradycardia with 1st degree A-V block Otherwise normal ECG Confirmed by KARY RAYA ([id number]), clinical editor ARIS HYMAN ([id number]) on 01/05/2019 2:14:43 PM Referred By: Kary Raya Confirmed By:KARY RAYA
--- NOTE | 2018-12-31 14:15 | CRPHASE1 ---
Patient Communication PHII Cardiac Rehab Discussed with Patient:: Yes Guide to Cardiac Rehab Given to Patient:: Yes Cardiac Rehab Facility Choice List Given to Patient:: Yes Choice Program [facility] CR PHII:: Communication Given to CR, Refer to [facility] Operator Helper:: Ross Raya Phase II Cardiac Rehab:: Yes Sessions:: 36 sessions - 3 days/wk, 12 weeks Risk Factors/Lifestyle Hx Hypertension: Yes Hx Dyslipidemia: Yes Hx Obesity: Yes Height: 5 ft 8 in Weight:: 185 lb BMI: 28.1 Post-Menopausal: Yes Family History: Family History (Last Updated 11/23/18 @ 14:03 by Holly Graff) Father Hypotension Mother S/P CABG x 4, Onset Age: 65 Diabetes Hypertension Thyroid disorder Myocardial infarction CAD (coronary artery disease) Brother Hypertension Rheumatoid arthritis Phase I Education Given On:: [place], Nutrition, Antiplatelet medication Issues Affecting Care:: None Knowledge of Condition:: Yes Learning Preferences: Verbal, Written, Audio/Visual, Demonstration Hospital Course Miscellaneous:: Elevated calcium score, abnormal stress test, CAD, HLD and HTN Medical/Surgical History CAD:: Yes Hypertension:: Yes Dyslipidemia:: Yes Cardiac Rehabilitation Info Cardiac Rehabilitation Program Information: Cardiac Rehabilitation is important for patients like you who are recovering from a heart problem. Cardiac rehabilitation programs are recognized as integral to the continued care of the patient with coronary heart disease. The cardiac rehabilitation program is designed to optimize a patient's physical, psychological, and social functioning. Health out of school hours care worker work in cardiac rehabilitation programs and assist you with getting the treatments you need to get stronger and healthier - like exercise, healthy eating habits, and medications. Cardiac rehabilitation has been show to help people with heart problems live longer and have better life enjoyment than people who do not go to cardiac rehabilitation. Please contact the Cardiac Rehabilitation Program at [facility] at in two weeks if you have not heard from them.
--- NOTE | 2018-12-31 14:19 | CRPH1.INSTRU ---
General Education CAD and cardiac anatomy and function:: Patient communicates acknowledgment Explanation of diagnoses and procedures:: Patient communicates acknowledgment Sign/Symptoms of PA:: Patient communicates acknowledgment Antiplatelet therapy: Patient communicates acknowledgment Proper use of NTG-SL: Patient communicates acknowledgment Emergency procedures and activation of EMS: Patient communicates acknowledgment Compliance of all prescribed medications: Patient communicates acknowledgment Dyslipidemia Patient Dyslipidemia Risk Factors Are:: Total Cholesterol, Triglycerides, HDL, LDL Recommendations Include:: Lipid profile provided Dyslipidemia Response Code:: Patient communicates acknowledgment Overweight/Obesity Patient Overweight/Obesity Risk Factors Are:: BMI Normal [24-29 & > 65 years old] Recommendations Include:: Weight loss of 5-10%, Reduced calorie diet, Exercise 5-7 times/week Overweight/Obesity:: Patient communicates acknowledgment Hypertension Recommendations Include:: Maintain BP <130/85, DASH dietary guidelines, Decrease/maintain normal body weight Hypertension:: Patient communicates acknowledgment Heart Disease Patient Heart Disease Risk Factors Are:: Family history of heart disease < 65 years old Recommendations Include:: Educated family members of their risk, Educated family members of importance of prevention of heart disease Heart Disease Response Code:: Patient communicates acknowledgment Sedentary Recommendations Include:: Aerobic exercise 5-7 times/week for 20-30 minutes continuously, Benefits of regular exercise, Discussed home walking program, Monitored Outpatient Cardiac Rehab Sedentary Response Code:: Patient communicates acknowledgment Stress Patient Stress Risk Factors Are:: Patient denies stress as a risk factor
[2018-12-31] MEDS: Acetaminophen 325 MG Tablet 650 MG PO (14:33)
[2018-12-31] MEDS: Losartan Potassium 50 MG Tablet PO (21:31)
[2018-12-31] MEDS: Metoprolol Tartrate 25 MG Tablet 12.5 MG PO (21:31)
[2019-01-01] VITALS (14 sets, daily range): BP systolic 103–141; BP diastolic 52–86; PULSE 51–96; RESP 12–18; TEMP 36.5–36.8; O2SAT 90–97
[2019-01-01 04:20] LABS: Hematocrit 38.3 % (37-47); Mean Corp Hgb Conc 33.9 g/gl (32-36); Mean Corpuscular Hgb 30.4 pg (27.0-32.0); Mean Corpuscular Volume 89.5 fL (81-99); Mean Platelet Vol. 9.8 fl (6.2-12.0); Platelet Count 197 K/mm3 (150-450); RBC Distribution Width CV 12.9 % (11.6-14.6); RBC Distribution Width SD 41.3 fl (35.1-43.9); Red Blood Count 4.28 M/mm3 (4.2-5.4)
[2019-01-01 04:29] LABS: Scan Indicated on CBC? Y/N NO
[2019-01-01 04:38] LABS: BUN 15 mg/dL (7-18); Creatinine, Serum 0.59 mg/dL (0.55-1.02); EST Glomerular Filtration Rate 107 mL/min (>60); Estimated Creatinine Clearance 54.32 ml/min; Glucose 100 mg/dL (74-106)
[2019-01-01 04:39] LABS: Anion Gap 7 (5-15); BUN/Creat Ratio 25.3 RATIO (10-20); Calcium,Total 8.5 mg/dL (8.5-10.1); Chloride 113 mmol/L (98-107); Cholesterol 115 mg/dL (200); Est Glom Filt Rate - Afr Amer 130 mL/min (>60); High Density Lipoprotein 56 mg/dL; Sodium Level 144 mmol/L (136-145); Triglycerides 75 mg/dL; Very Low Density Lipoprotein 15 mg/dL (5-40)
--- NOTE | 2019-01-01 08:51 | PCM.PN.CARD ---
Subjectve: Denies chest pain, shortness of breath, or heart palpitations Objective: Vital Signs Temp Pulse Resp BP Pulse Ox 97.7 F L 96 14 109/61 93 01/01/19 04:00 01/01/19 07:14 01/01/19 06:00 01/01/19 06:00 01/01/19 06:56 Oxygen Delivery Method Room Air Weight: 180 lb 1.883 oz Body Mass Index (BMI) 28.0 Intake and Output for Last 24 Hours 12/30/18 12/31/18 01/01/19 23:59 23:59 23:59 Intake Total 1133 840 / 840 Balance 1133 840 / 840 General: Awake, Alert, Oriented x 3 HEENT: PERRL, EOMI, Sclera Non Icteric Neck: Supple, Good ROM, No Lymph Node Enlargement Lungs: Clear to auscultation Cardiovascular: Regular Rhythm, Normal S1, Normal S2, No Murmurs, No Rubs, No Gallops Vascular: No Carotid Bruits - no groin hematoma, Normal Femoral Pulses, Normal Radial Pulses, Normal Dorsalis Pedal Pulse, Normal Posterior Tibial Pulses Abdomen: Bowel Sounds Present, Soft, Non Tender, No HSM, No Organomegaly Extremities: No Cyanosis, No Clubbing, No edema Neurological: No Focal Motor or Sensory Deficit 12/31/18 11:03: VBG pH 7.37, VBG pO2 39, VBG O2 Sat (Calc) 72 H, VBG O2 Content 23, VBG Base Excess -3 L 12/31/18 11:06: VBG pH 7.36, VBG pO2 40, VBG O2 Sat (Calc) 73 H, VBG O2 Content 23, VBG Base Excess -3 L 12/31/18 11:19: pH 7.36, Bicarbonate Actual 21.1 L, POC Total CO2 22, Base Excess -4 L, O2 Saturation 95, ABG pCO2 36.9, ABG pO2 75 01/01/19 04:05: WBC 6.0, RBC 4.28, Hgb 13.0, Hct 38.3, MCV 89.5, MCH 30.4, MCHC 33.9, RDW 12.9, RDW Differential 41.3, Plt Count 197, MPV 9.8 01/01/19 04:05: Sodium 144, Potassium 4.0, Chloride 113 H, Carbon Dioxide 24.0, Anion Gap 7, BUN 15, Creatinine 0.59, Est GFR (MDRD) Af Amer 130, Est GFR (MDRD) Non-Af 107, BUN/Creatinine Ratio 25.3 H, Glucose 100, Calcium 8.5, Triglycerides 75, Cholesterol 115, LDL Cholesterol 44, VLDL Cholesterol 15, HDL Cholesterol 56 Rhythm: EKG: ECHO: Stress Test: Cardiac Cath: PCI: CT Surgery: Holter monitor: EPS: PPM: CXR: Chest CT Scan: Medical Necessity - Tobacco Use Smoking Status: Never smoker Assessment/Plan Impression: 1. CAD status post PCI to the LAD. 2. Abnormal stress test. 3. Hypertension 4. Hyperlipidemia Plan: Continue dual antiplatelet therapy Continue statin therapy. Follow-up with Dr. Raya in the next 2 to 3 weeks.
[2019-01-01] MEDS: Losartan Potassium 50 MG Tablet PO (10:16)
[2019-01-01] MEDS: Aspirin E.C. 81 MG Tablet PO (10:17)
[2019-01-01] MEDS: Metoprolol Tartrate 25 MG Tablet 12.5 MG PO (10:17)
[2019-01-01] MEDS: Clopidogrel Bisulfate 75 MG Tablet PO (10:18)
== END 2019-01-01 11:05 | disposition home or self-care (01) ==
LOC: ICU 14:18 → CVS 15:53 → ICU 15:53
PROVIDERS: Family Provider Internal Medicine; PCP Internal Medicine; Referring Provider Internal Medicine Cardiovascular Disease; Visit Provider Internal Medicine Cardiovascular Disease
DX: R94.39 Abnormal result of other cardiovascular function study (principal); I25.10 Atherosclerotic heart disease of native coronary artery without angina pectoris; I11.9 Hypertensive heart disease without heart failure; E78.5 Hyperlipidemia, unspecified; R93.1 Abnormal findings on diagnostic imaging of heart and coronary circulation; E11.9 Type 2 diabetes mellitus without complications; I34.1 Nonrheumatic mitral (valve) prolapse; I73.9 Peripheral vascular disease, unspecified; I65.23 Occlusion and stenosis of bilateral carotid arteries; R93.89 Abnormal findings on diagnostic imaging of other specified body structures
CPT/HCPCS: 36415; 80048; 80061; 82803; 85027; 85347; 85610; 85730; 92928; 93005; 93312; 93320; 93325; 93460; C1760; J7030; J7040; Q9967; A4216; C1725; C1751; C1769; C1874; C1887; C1894; C9600

== ENCOUNTER → 2019-12-15 | Outpatient (CLI) | payer MEDICARE, SELFPAY ==
[2018-12-31 14:19] VITALS: BMI 28.1
[2019-06-13 14:21] VITALS: BMI 28.3
--- NOTE | 2019-12-15 12:37 | BI_ITS ---
MAMMOGRAPHY - BILATERAL SCREENING REASON FOR EXAM: Female, 69 years old. Routine annual screening examination. PERTINENT HISTORY: Non-contributory. TECHNIQUE: Digital bilateral breast oly (3D mammographic acquisition) in the CC and MLO projections. 2-D mediolateral oblique (MLO) and craniocaudad (CC) views of both breasts were obtained. CAD: Full Field Digital Mammography with Computer Added Detection was performed. COMPARISON: Comparison is made with prior examination dated November 11, 2018 and November 02, 2017. FINDINGS: Breast Composition: There are scattered areas of fibroglandular density. There are no dominant masses or suspicious calcifications. Stable small benign-appearing bilateral axillary lymph nodes. No other significant abnormalities are identified. There has been no significant change since the prior study. BI/SCREEN MAMM (CAD) W/OLY BILAT IMPRESSION: Stable bilateral screening mammogram. Yearly follow-up mammogram recommended. (A) ASSESSMENT CATEGORY: BIRADS Category 1: Negative. A letter regarding these results will be sent to the patient by the facility within 30 days. Approximately 10% of breast cancers are not detected by mammography. A normal mammogram should not delay biopsy of a clinically suspicious abnormality. [id number] Electronically Signed: Owen Whiting, at 13:25 EDT , Service support ,
--- NOTE | 2019-12-15 12:58 | BD_ITS ---
STUDY: DUAL ENERGY X-RAY ABSORPTIOMETRY / DXA REASON FOR EXAM: Female, 69 years old. 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 COMPARISON: Comparison is made with prior examination dated March 20, 2016. FINDINGS: Lumbar Spine (L1-L4): g/cm2 (1.413) / T-score (1.8) / Z-score (3.4) Findings are suggestive of normal bone density with a low fracture risk. Left Femur Total: g/cm2 (1.236) / T-score (1.8) / Z-score (3.2) Left Femoral Neck: g/cm2 (1.370) / T-score (2.4) / Z-score (4.0) Right Femur Total: g/cm2 (1.291) / T-score (2.2) / Z-score (3.7) Right Femoral Neck: g/cm2 (1.451) / T-score (3.0) / Z-score (4.6) The T-Scores on the most recent prior examination were: Lumbar Spine (L1-L4): There has been worsening of bone density since the previous examination. Left Femur Total: which represents a worsening of 4.9%. Right Femur Total: which represents a worsening of 3.2%. BD/Dexa Bone Density Study IMPRESSION: The patient is considered normal as outlined below according to World Mack Organization (WHO) criteria with a low fracture risk. There has been worsening of bone density since the previous examination. Reference Information: The T-score is the number of standard deviations above or below the standard which is normal for young adults at their peak bone mineral density. The World Health Organization (WHO) interprets the T-scores as follows: Above -1 Normal bone density Between -1 and -2.5 Osteopenia Equal to / or below -2.5 Osteoporosis As a practical clinical guideline, osteopenia may be graded as follows: Mild -1 through -1.5 Moderate -1.6 through -2.0 Severe -2.1 through -2.4 The Z-score is the number of standard deviations above or below age-matched controls. A Z-score of less than -1.5 would be considered abnormal. References: 1. NIH Osteoporosis and Related Bone Diseases http://www.osteo.org 2. International Society for Clinical Densitometry http://www.iscd.org 3. National Osteoporosis Foundation http://www.nof.org Electronically Signed: Owen Whiting, at 14:17 EDT , Service support ,
== END | disposition home or self-care (01) ==
LOC: OPBI 12:34
PROVIDERS: PCP Internal Medicine; Visit Provider Internal Medicine
DX: Z78.0 Asymptomatic menopausal state (principal); Z12.31 Encounter for screening mammogram for malignant neoplasm of breast
CPT/HCPCS: 77063; 77067; 77080

== ENCOUNTER → 2020-02-15 07:48 | Outpatient (CLI) | payer MEDICARE, SELFPAY ==
[2018-12-31 14:19] VITALS: BMI 28.1
[2019-12-15 13:28] VITALS: BMI 28.2
--- NOTE | 2020-02-15 07:51 | CDU_ITS ---
Reason For Study: CAROTID STENOSIS Rt. Velocities/BP Lt. Velocities/BP Prox CCA 138/26 cm/sec. Prox CCA 115/26 cm/sec. Mid CCA 84/23 cm/sec. Mid CCA 96/27 cm/sec. Dist CCA 64/19 cm/sec. Dist CCA 95/21 cm/sec. Prox ICA 85/20 cm/sec. Prox ICA 79/19 cm/sec. Mid ICA 85/20 cm/sec. Mid ICA 56/17 cm/sec. Dist ICA 68/24 cm/sec. Dist ICA 78/24 cm/sec. Rt. ICA/CCA = .5. Lt. ICA/CCA = .7. Prox ECA 81/9 cm/sec. Prox ECA 88/11 cm/sec. Rt. Vert. 34/10 cm/sec. Lt. Vert. 56/13 cm/sec. Right Extracranial There is intimal thickening but no significant atherosclerotic plaque noted in the right common carotid artery. There is homogeneous, smooth atherosclerotic plaque noted in the right internal carotid artery. There is homogeneous, smooth atherosclerotic plaque noted in the right external carotid artery. Antegrade flow is noted in the right vertebral artery. There is heterogeneous, irregular atherosclerotic plaque noted in the right bulb. Left Extracranial There is homogeneous, smooth atherosclerotic plaque noted in the left common carotid artery. There is heterogeneous, irregular atherosclerotic plaque noted in the left internal carotid artery. There is homogeneous, smooth atherosclerotic plaque noted in the left external carotid artery. Antegrade flow is noted in the left vertebral artery. There is heterogeneous, irregular atherosclerotic plaque noted in the left bulb. Procedure Carotid Duplex [id number]. Exam performed in department. Interpretation Summary Mild (<50%) stenosis right extracranial internal carotid. Mild (<50%) stenosis left extracranial internal carotid. Flow within the vertebral arteries is antegrade bilaterally. Heterogeneous, irregular atherosclerotic plaque is noted in the carotid bulbs bilaterally, which does not appear hemodynamically significant. Ordering Physician: Fast, Rafaela Referring Physician: Rafaela Baron Performed By: Natty Jones, CELY, RVT
== END ==
PROVIDERS: PCP Internal Medicine; Referring Provider Internal Medicine; Visit Provider Internal Medicine
DX: I65.23 Occlusion and stenosis of bilateral carotid arteries (principal)
CPT/HCPCS: 93880

== ENCOUNTER → 2020-06-04 08:57 | Outpatient (CLI) | payer MEDICARE, SELFPAY ==
[2018-12-31 14:19] VITALS: BMI 28.1
[2019-12-15 13:28] VITALS: BMI 28.2
[2020-06-04 10:06] LABS: AST(SGOT) 23 U/L (15-37); Alanine Aminotransfer ALT/SGPT 31 U/L (13-56); Albumin, Serum 3.9 g/dL (3.2-5.0); Alkaline Phosphatase 57 U/L (45-117); Bilirubin, Direct 0.29 mg/dL (0.00-0.30); Cholesterol 159 mg/dL (200); Globulin 3.5 g/dL (2.2-4.2); High Density Lipoprotein 69 mg/dL; Protein, Total 7.4 g/dL (6.4-8.2); Triglycerides 114 mg/dL; Very Low Density Lipoprotein 23 mg/dL (5-40)
== END ==
PROVIDERS: PCP Internal Medicine; Referring Provider Nurse Practitioner Family; Visit Provider Nurse Practitioner Family
DX: E78.00 Pure hypercholesterolemia, unspecified (principal); E78.5 Hyperlipidemia, unspecified
CPT/HCPCS: 36415; 80061; 80076

== ENCOUNTER → 2020-12-28 08:53 | Outpatient (CLI) | payer MEDICARE, SELFPAY ==
[2018-12-31 14:19] VITALS: BMI 28.1
[2020-06-15 11:27] VITALS: BMI 28.0
[2020-12-28 10:35] LABS: AST(SGOT) 24 U/L (15-37); Alanine Aminotransfer ALT/SGPT 27 U/L (13-56); Albumin, Serum 3.9 g/dL (3.2-5.0); Alkaline Phosphatase 63 U/L (45-117); Bilirubin, Direct 0.27 mg/dL (0.00-0.30); Cholesterol 137 mg/dL (200); Globulin 3.6 g/dL (2.2-4.2); High Density Lipoprotein 68 mg/dL; Protein, Total 7.5 g/dL (6.4-8.2); Triglycerides 109 mg/dL; Very Low Density Lipoprotein 22 mg/dL (5-40)
== END ==
PROVIDERS: PCP Internal Medicine; Referring Provider Nurse Practitioner Family; Visit Provider Nurse Practitioner Family
DX: E78.5 Hyperlipidemia, unspecified (principal)
CPT/HCPCS: 36415; 80061; 80076

== ENCOUNTER → 2021-01-08 12:09 | Outpatient (CLI) | payer MEDICARE, SELFPAY ==
[2018-12-31 14:19] VITALS: BMI 28.1
[2020-06-15 11:27] VITALS: BMI 28.0
--- NOTE | 2021-01-08 12:11 | BI_ITS ---
MAMMOGRAPHY - BILATERAL SCREENING REASON FOR EXAM: Female, 70 years old. Routine annual screening examination. PERTINENT HISTORY: Non-contributory. TECHNIQUE: Digital bilateral breast oly (3D mammographic acquisition) in the CC and MLO projections. 2-D mediolateral oblique (MLO) and craniocaudad (CC) views of both breasts were obtained. CAD: Full Field Digital Mammography with Computer Added Detection was performed. COMPARISON: Comparison is made with prior study of 12/15/2019 and 11/11/2018. FINDINGS: Breast Composition: There are scattered areas of fibroglandular density. There are no dominant masses or suspicious calcifications. Stable small benign-appearing bilateral axillary lymph nodes. No other significant abnormalities are identified. There has been no significant change since the prior study. BI/SCRN MAMM (CAD)W/OLY BILAT IMPRESSION: Stable bilateral screening mammogram. Yearly follow-up mammogram recommended. (A) ASSESSMENT CATEGORY: BIRADS Category 2: Benign. A letter regarding these results will be sent to the patient by the facility within 30 days. Approximately 10% of breast cancers are not detected by mammography. A normal mammogram should not delay biopsy of a clinically suspicious abnormality. [id number] Electronically Signed: Owen Whiting MD at 13:24 EDT , Service support ,
== END ==
PROVIDERS: PCP Internal Medicine; Referring Provider Internal Medicine; Visit Provider Internal Medicine
DX: Z12.31 Encounter for screening mammogram for malignant neoplasm of breast (principal)
CPT/HCPCS: 77063; 77067

== ENCOUNTER → 2021-02-18 10:46 | Outpatient (CLI) | payer MEDICARE, SELFPAY ==
[2018-12-31 14:19] VITALS: BMI 28.1
[2021-01-08 13:00] VITALS: BMI 28.4
--- NOTE | 2021-02-18 10:52 | CDU_ITS ---
Reason For Study: Carotid stenosis Rt. Velocities/BP Lt. Velocities/BP Prox CCA 102.1/26.5 cm/sec. Prox CCA 97.4/24.9 cm/sec. Mid CCA 70.8/20 cm/sec. Mid CCA 80.2/22.5 cm/sec. Dist CCA 61.7/16 cm/sec. Dist CCA 75.3/18.8 cm/sec. Prox ICA 60.4/14.7 cm/sec. Prox ICA 56.9/15. cm/sec. Mid ICA 82.6/22.6 cm/sec. Mid ICA 75.3/23.7 cm/sec. Dist ICA 65.6/21.3 cm/sec. Dist ICA 64.2/21.2 cm/sec. Rt. ICA/CCA = 1.17. Lt. ICA/CCA = 0.94. Prox ECA 83.9/13.4 cm/sec. Prox ECA 82.7/11.4 cm/sec. Rt. Vert. 40/9.7 cm/sec. Lt. Vert. 52/15.1 cm/sec. Right Extracranial There is intimal thickening but no significant atherosclerotic plaque noted in the right common carotid artery. There is heterogeneous, irregular atherosclerotic plaque noted in the right internal carotid artery. There is intimal thickening but no significant atherosclerotic plaque noted in the right external carotid artery. Antegrade flow is noted in the right vertebral artery. Left Extracranial There is intimal thickening but no significant atherosclerotic plaque noted in the left common carotid artery. There is heterogeneous, irregular atherosclerotic plaque noted in the left internal carotid artery. There is intimal thickening but no significant atherosclerotic plaque noted in the left external carotid artery. Antegrade flow is noted in the left vertebral artery. Procedure This is a Carotid Duplex examination using B-mode, color flow and specral Doppler. Carotid Duplex [id number]. Exam performed in department. VL/Carotid Duplex Ultrasound Interpretation Summary Mild (<50%) stenosis right extracranial internal carotid. Mild (<50%) stenosis left extracranial internal carotid. Flow within the vertebral arteries is antegrade bilaterally. Ordering Physician: Rafaela Baron Referring Physician: Rafaela Baron Performed By: Noelle De León RVT
== END ==
PROVIDERS: PCP Internal Medicine; Referring Provider Internal Medicine; Visit Provider Internal Medicine
DX: I65.23 Occlusion and stenosis of bilateral carotid arteries (principal)
CPT/HCPCS: 93880

== ENCOUNTER 2021-10-04 09:06 | Outpatient (CLI) | payer MEDICARE, SELFPAY ==
[2018-12-31 14:19] VITALS: BMI 28.1
[2021-10-04 10:44] LABS: AST(SGOT) 18 U/L (15-37); Alanine Aminotransfer ALT/SGPT 27 U/L (13-56); Albumin, Serum 3.9 g/dL (3.2-5.0); Alkaline Phosphatase 63 U/L (45-117); Bilirubin, Direct 0.27 mg/dL (0.00-0.30); Cholesterol 141 mg/dL (200); Globulin 3.5 g/dL (2.2-4.2); High Density Lipoprotein 63 mg/dL; Protein, Total 7.4 g/dL (6.4-8.2); Triglycerides 113 mg/dL; Very Low Density Lipoprotein 23 mg/dL (5-40)
== END 2021-10-04 23:59 | disposition home or self-care (01) ==
LOC: LAB 09:08
PROVIDERS: PCP Internal Medicine; Referring Provider Nurse Practitioner Family; Visit Provider Nurse Practitioner Family
DX: E78.00 Pure hypercholesterolemia, unspecified (principal); E78.5 Hyperlipidemia, unspecified
CPT/HCPCS: 36415; 80061; 80076

== ENCOUNTER → 2022-01-09 | Outpatient (CLI) | payer MEDICARE, SELFPAY ==
[2018-12-31 14:19] VITALS: BMI 28.1
--- NOTE | 2022-01-09 09:04 | BI_ITS ---
MAMMOGRAPHY - BILATERAL SCREENING REASON FOR EXAM: Female, 71 years old. Routine annual screening examination. PERTINENT HISTORY: Non-contributory. TECHNIQUE: Digital bilateral breast oly (3D mammographic acquisition) in the CC and MLO projections. 2-D mediolateral oblique (MLO) and craniocaudad (CC) views of both breasts were obtained. CAD: Full Field Digital Mammography with Computer Added Detection was performed. COMPARISON: Comparison is made with prior study dated 01/08/2021 and 12/15/2019. FINDINGS: Breast Composition: There are scattered areas of fibroglandular density. There are no dominant masses or suspicious calcifications. No other significant abnormalities are identified. There has been no significant change since the prior study. BI/SCRN MAMM (CAD)W/OLY BILAT IMPRESSION: Stable bilateral screening mammogram. Yearly follow-up mammogram recommended. (A) ASSESSMENT CATEGORY: BIRADS Category 1: Negative. A letter regarding these results will be sent to the patient by the facility within 30 days. Approximately 10% of breast cancers are not detected by mammography. A normal mammogram should not delay biopsy of a clinically suspicious abnormality. [id number] Electronically Signed: Owen Whiting MD at 10:38 EDT ,
== END | disposition home or self-care (01) ==
LOC: OPBI 09:00
PROVIDERS: PCP Internal Medicine; Visit Provider Internal Medicine
DX: Z12.31 Encounter for screening mammogram for malignant neoplasm of breast (principal)
CPT/HCPCS: 77063; 77067

== ENCOUNTER → 2022-02-19 | Outpatient (CLI) | payer MEDICARE, SELFPAY ==
[2018-12-31 14:19] VITALS: BMI 28.1
--- NOTE | 2022-02-19 09:07 | CDU_ITS ---
Reason For Study: Carotid stenosis Rt. Velocities/BP Lt. Velocities/BP Prox CCA 82.6/20 cm/sec. Prox CCA 115.6/24.3 cm/sec. Mid CCA 86.5/22.6 cm/sec. Mid CCA 85.1/23.7 cm/sec. Dist CCA 66.9/18.6 cm/sec. Dist CCA 79/22.5 cm/sec. Prox ICA 48.7/13.5 cm/sec. Prox ICA 44.6/11.4 cm/sec. Mid ICA 76.1/23.4 cm/sec. Mid ICA 70.4/23.7 cm/sec. Dist ICA 84.9/28.9 cm/sec. Dist ICA 72.8/20 cm/sec. Rt. ICA/CCA = 1.15. Lt. ICA/CCA = 0.86. Prox ECA 70.8/8.2 cm/sec. Prox ECA 92.5/12.6 cm/sec. Rt. Vert. 41/11.3 cm/sec. Lt. Vert. 54.4/13.9 cm/sec. Right Extracranial There is intimal thickening but no significant atherosclerotic plaque noted in the right common carotid artery. There is heterogeneous, irregular atherosclerotic plaque noted in the right internal carotid artery. There is intimal thickening but no significant atherosclerotic plaque noted in the right external carotid artery. Antegrade flow is noted in the right vertebral artery. Left Extracranial There is intimal thickening but no significant atherosclerotic plaque noted in the left common carotid artery. There is heterogeneous, irregular atherosclerotic plaque noted in the left internal carotid artery. There is intimal thickening but no significant atherosclerotic plaque noted in the left external carotid artery. Antegrade flow is noted in the left vertebral artery. Procedure Carotid Duplex [id number]. This is a Carotid Duplex examination using B-mode, color flow and specral Doppler. Exam performed in department. VL/Carotid Duplex Ultrasound Interpretation Summary Mild (<50%) stenosis right extracranial internal carotid. Mild (<50%) stenosis left extracranial internal carotid. Flow within the vertebral arteries is antegrade bilaterally. Ordering Physician: Rafaela Baron Referring Physician: Rafaela Baron Performed By: Noelle De León RVT
== END | disposition home or self-care (01) ==
LOC: CVS 09:04
PROVIDERS: PCP Internal Medicine; Referring Provider Internal Medicine; Visit Provider Internal Medicine
DX: I65.23 Occlusion and stenosis of bilateral carotid arteries (principal)
CPT/HCPCS: 93880

== ENCOUNTER → 2022-11-13 | Outpatient (CLI) | payer MEDICARE, SELFPAY ==
[2018-12-31 14:19] VITALS: BMI 28.1
[2022-11-13 10:03] LABS: AST(SGOT) 22 U/L (15-37); Alanine Aminotransfer ALT/SGPT 27 U/L (13-56); Albumin, Serum 3.8 g/dL (3.2-5.0); Alkaline Phosphatase 62 U/L (45-117); Bilirubin, Direct 0.29 mg/dL (0.00-0.30); Cholesterol 145 mg/dL (200); Globulin 3.7 g/dL (2.2-4.2); High Density Lipoprotein 69 mg/dL; Protein, Total 7.5 g/dL (6.4-8.2); Triglycerides 109 mg/dL; Very Low Density Lipoprotein 22 mg/dL (5-40)
== END | disposition home or self-care (01) ==
LOC: LAB 08:21
PROVIDERS: PCP Internal Medicine; Referring Provider Nurse Practitioner Family; Visit Provider Nurse Practitioner Family
DX: E78.00 Pure hypercholesterolemia, unspecified (principal)
CPT/HCPCS: 36415; 80061; 80076

== ENCOUNTER → 2022-11-28 | Outpatient (CLI) | payer MEDICARE, SELFPAY ==
[2018-12-31 14:19] VITALS: BMI 28.1
--- NOTE | 2022-11-28 16:24 | STRESSREP ---
Stress Test Report Exercise myocardial perfusion stress test. 72-year-old lady with a history of coronary artery disease Stress protocol: Resting EKG demonstrates normal sinus rhythm with a rate of 69 bpm resting blood pressure is 128/80 mmHg. The patient exercised according to the regular Mono protocol for a total duration of 6 minutes attaining a maximum heart rate of 139 bpm which was 93% of maximum predicted heart rate; the maximum workload was 7 metabolic equivalents. At rest there were no ST or T wave changes noted to suggest ischemia and at peak exercise upsloping ST changes only were noted which did not meet the criteria for ischemia. No clinical angina was noted the test was terminated due to the target heart rate being achieved/fatigue. The peak blood pressure was 160/76 mmHg. Rate-pressure product was 21,900. Myocardial perfusion protocol. 12.0 mCi of technetium 99m sestamibi was injected at rest. The patient exercised according to regular Mono protocol for total duration of 6 minutes and at peak exercise 33.8 mCi of technetium 99m sestamibi was injected stress images were obtained stress and rest images were reconstructed in comparing the short axis vertical long and horizontal long axis. Gated images were also obtained. Perfusion SPECT analysis: Review of the stress images demonstrate normal uptake of tracer noted in all areas of the myocardium. The resting images similarly demonstrate normal uptake of tracer noted in all areas of the myocardium. No areas of reversibility are noted to suggest ischemia no previous infarct was noted. Gated SPECT analysis: The gated ejection fraction is 62%. Conclusion: Normal exercise myocardial perfusion stress test at a moderate workload Preserved ejection fraction.
== END | disposition home or self-care (01) ==
LOC: CVS 07:09
PROVIDERS: PCP Internal Medicine; Referring Provider Internal Medicine Cardiovascular Disease; Visit Provider Internal Medicine Cardiovascular Disease
DX: I25.10 Atherosclerotic heart disease of native coronary artery without angina pectoris (principal); Z95.5 Presence of coronary angioplasty implant and graft
CPT/HCPCS: 78452; 93017; A9500; A4216

== ENCOUNTER → 2023-02-12 | Outpatient (CLI) | payer MEDICARE, SELFPAY ==
[2018-12-31 14:19] VITALS: BMI 28.1
--- NOTE | 2023-02-12 13:29 | BI_ITS ---
MAMMOGRAPHY - BILATERAL SCREENING REASON FOR EXAM: Female, 72 years old. Routine annual screening examination. PERTINENT HISTORY: Non-contributory. TECHNIQUE: Digital bilateral breast oly (3D mammographic acquisition) in the CC and MLO projections. 2-D mediolateral oblique (MLO) and craniocaudad (CC) views of both breasts were obtained. CAD: Full Field Digital Mammography with Computer Added Detection was performed. COMPARISON: Comparison is made with prior study of January 09, 2022 and January 08, 2021. FINDINGS: Breast Composition: There are scattered areas of fibroglandular density. There are no dominant masses or suspicious calcifications. No other significant abnormalities are identified. There has been no significant change since the prior study. BI/SCRN MAMM (CAD)W/OLY BILAT IMPRESSION: Stable bilateral screening mammogram. Yearly follow-up mammogram recommended. (A) ASSESSMENT CATEGORY: BIRADS Category 1: Negative. A letter regarding these results will be sent to the patient by the facility within 30 days. Approximately 10% of breast cancers are not detected by mammography. A normal mammogram should not delay biopsy of a clinically suspicious abnormality. [id number] Electronically Signed: Owen Whiting MD at 15:38 EDT ,
--- NOTE | 2023-02-12 13:32 | BD_ITS ---
STUDY: DUAL ENERGY X-RAY ABSORPTIOMETRY / DXA REASON FOR EXAM: Female, 72 years old. 627.8Menopausal postmenopausal BONE DENSITY REASON FOR EXAM TECHNIQUE: Bone Mineral Density (BMD) measurements of lumbar spine and bilateral hips were obtained. COMPARISON: Comparison is made with prior study dated December 15, 2019. FINDINGS: Lumbar Spine (L1-L4): g/cm2 (1.197) / T-score (1.4) / Z-score (3.6) Findings are suggestive of normal bone density with a low fracture risk. Left Femur Total: g/cm2 (1.052) / T-score (0.9) / Z-score (2.5) Left Femoral Neck: g/cm2 (1.016) / T-score (1.5) / Z-score (3.4) Right Femur Total: g/cm2 (1.109) / T-score (1.4) / Z-score (3.0) Right Femoral Neck: g/cm2 (1.172) / T-score (2.9) / Z-score (4.8) The T-Scores on the most recent prior examination were: Lumbar Spine (L1-L4): There has been worsening of bone density since the previous examination. Left Femur Total: which represents a worsening of 9.5%. Right Femur Total: which represents a worsening of 8.8%. BD/Dexa Bone Density Study IMPRESSION: The patient is considered normal as outlined below according to World Mack Organization (WHO) criteria with a low fracture risk. There has been worsening of bone density since the previous examination. Reference Information: The T-score is the number of standard deviations above or below the standard which is normal for young adults at their peak bone mineral density. The World Health Organization (WHO) interprets the T-scores as follows: Above -1 Normal bone density Between -1 and -2.5 Osteopenia Equal to / or below -2.5 Osteoporosis As a practical clinical guideline, osteopenia may be graded as follows: Mild -1 through -1.5 Moderate -1.6 through -2.0 Severe -2.1 through -2.4 The Z-score is the number of standard deviations above or below age-matched controls. A Z-score of less than -1.5 would be considered abnormal. References: 1. NIH Osteoporosis and Related Bone Diseases www osteo.org 2. International Society for Clinical Densitometry www iscd.org 3. National Osteoporosis Foundation www nof.org Electronically Signed: Owen Whiting MD at 13:47 EDT ,
== END | disposition home or self-care (01) ==
PROVIDERS: PCP Internal Medicine; Referring Provider Internal Medicine; Visit Provider Internal Medicine
DX: Z12.31 Encounter for screening mammogram for malignant neoplasm of breast (principal); Z78.0 Asymptomatic menopausal state
CPT/HCPCS: 77063; 77067; 77080

== ENCOUNTER → 2023-02-23 | Outpatient (CLI) | payer MEDICARE, SELFPAY ==
[2018-12-31 14:19] VITALS: BMI 28.1
--- NOTE | 2023-02-23 08:43 | CDU_ITS ---
Reason For Study: STENOSIS Rt. Velocities/BP Lt. Velocities/BP Prox CCA 97.4/20.4 cm/sec. Prox CCA 112.5/13.0 cm/sec. Mid CCA 74.3/18.2 cm/sec. Mid CCA 87.9/13.0 cm/sec. Dist CCA 62.2/18.2 cm/sec. Dist CCA 89.1/21.6 cm/sec. Prox ICA 67.7/16.0 cm/sec. Prox ICA 64.6/16.7 cm/sec. Mid ICA 55.9/14.2 cm/sec. Mid ICA 73.2/22.8 cm/sec. Dist ICA 70.2/20.8 cm/sec. Dist ICA 73.2/22.8 cm/sec. Rt. ICA/CCA = 70.2/74.3=0.9. Lt. ICA/CCA = 73.2/87.9=0.8. Prox ECA 76.5/9.5 cm/sec. Prox ECA 80.6/6.9 cm/sec. Rt. Vert. 40.0/12.1 cm/sec. Lt. Vert. 52.8/12.2 cm/sec. Right Extracranial There is intimal thickening but no significant atherosclerotic plaque noted in the right common carotid artery. There is heterogeneous, irregular atherosclerotic plaque noted in the right internal carotid artery. There is intimal thickening but no significant atherosclerotic plaque noted in the right external carotid artery. Antegrade flow is noted in the right vertebral artery. Left Extracranial There is intimal thickening but no significant atherosclerotic plaque noted in the left common carotid artery. There is heterogeneous, irregular atherosclerotic plaque noted in the left internal carotid artery. There is intimal thickening but no significant atherosclerotic plaque noted in the left external carotid artery. Antegrade flow is noted in the left vertebral artery. Procedure Carotid Duplex [id number]. This is a Carotid Duplex examination using B-mode, color flow and specral Doppler. Exam performed in department. VL/Carotid Duplex Ultrasound Interpretation Summary Calcific plaque at the proximal right internal carotid artery with less than 50 % stenosis Less than 50% stenosis right external carotid artery Focal calcific plaque with shadowing at the proximal left internal carotid anuradha ry with less than 50% stenosis Less than 50% stenosis left external carotid artery Patent antegrade vertebral arteries bilaterally No change from the previous examination of February 19, 2022 Ordering Physician: Rafaela Baron Referring Physician: Rafaela Baron Performed By: Cherie Woodard RDCS, RVT
== END | disposition home or self-care (01) ==
LOC: CVS 08:42
PROVIDERS: PCP Internal Medicine; Referring Provider Internal Medicine; Visit Provider Internal Medicine
DX: I65.23 Occlusion and stenosis of bilateral carotid arteries (principal)
CPT/HCPCS: 93880

== ENCOUNTER → 2023-11-09 | Outpatient (CLI) | payer MEDICARE, SELFPAY ==
[2018-12-31 14:19] VITALS: BMI 28.1
[2023-11-09 11:52] LABS: AST(SGOT) 23 U/L (15-37); Alanine Aminotransfer ALT/SGPT 23 U/L (13-56); Albumin, Serum 3.8 g/dL (3.2-5.0); Alkaline Phosphatase 58 U/L (45-117); Bilirubin, Direct 0.29 mg/dL (0.00-0.30); Cholesterol 157 mg/dL (200); Globulin 3.4 g/dL (2.2-4.2); High Density Lipoprotein 66 mg/dL; Protein, Total 7.2 g/dL (6.4-8.2); Triglycerides 158 mg/dL; Very Low Density Lipoprotein 32 mg/dL (5-40)
== END | disposition home or self-care (01) ==
LOC: LAB 08:46
PROVIDERS: PCP Internal Medicine; Referring Provider Nurse Practitioner Family; Visit Provider Nurse Practitioner Family
DX: E78.00 Pure hypercholesterolemia, unspecified (principal)
CPT/HCPCS: 36415; 80061; 80076

== ENCOUNTER → 2024-02-15 | Outpatient (CLI) | payer MEDICARE, SELFPAY ==
[2018-12-31 14:19] VITALS: BMI 28.1
--- NOTE | 2024-02-15 09:09 | BI_ITS ---
MAMMOGRAPHY - BILATERAL SCREENING REASON FOR EXAM: Female, 73 years old. Routine annual screening examination. PERTINENT HISTORY: Non-contributory. TECHNIQUE: Digital bilateral breast oly (3D mammographic acquisition) in the CC and MLO projections. 2-D mediolateral oblique (MLO) and craniocaudad (CC) views of both breasts were obtained. CAD: Full Field Digital Mammography with Computer Added Detection was performed. COMPARISON: Comparison is made with prior study February 12, 2023 and January 09, 2022. FINDINGS: Breast Composition: There are scattered areas of fibroglandular density. There are no dominant masses or suspicious calcifications. Stable scattered bilateral secretory calcifications. No other significant abnormalities are identified. There has been no significant change since the prior study. BI/SCRN MAMM (CAD)W/OLY BILAT IMPRESSION: Stable bilateral screening mammogram. Yearly follow-up mammogram recommended. (A) ASSESSMENT CATEGORY: BIRADS Category 2: Benign. A letter regarding these results will be sent to the patient by the facility within 30 days. Approximately 10% of breast cancers are not detected by mammography. A normal mammogram should not delay biopsy of a clinically suspicious abnormality. [id number] Electronically Signed: Owen Whiting MD at 10:25 EDT ,
--- NOTE | 2024-02-15 09:42 | CDU_ITS ---
Reason For Study: Carotid Stenosis Rt. Velocities/BP Lt. Velocities/BP Prox CCA 78/16 cm/sec. Prox CCA 82/17 cm/sec. Mid CCA 72/15 cm/sec. Mid CCA 72/16 cm/sec. Dist CCA 59/14 cm/sec. Dist CCA 70/19 cm/sec. Prox ICA 63/15 cm/sec. Prox ICA 49/14 cm/sec. Mid ICA 65/20 cm/sec. Mid ICA 58/21 cm/sec. Dist ICA 69/22 cm/sec. Dist ICA 65/23 cm/sec. Rt. ICA/CCA = 1.0. Lt. ICA/CCA = 0.9. Prox ECA 70/6 cm/sec. Prox ECA 59/8 cm/sec. Rt. Vert. 33/7 cm/sec. Lt. Vert. 61/18 cm/sec. Right Extracranial There is heterogeneous, irregular atherosclerotic plaque noted in the right common carotid artery. There is intimal thickening but no significant atherosclerotic plaque noted in the right internal carotid artery. There is no significant atherosclerotic plaque noted in the right external carotid artery. Antegrade flow is noted in the right vertebral artery. Left Extracranial There is intimal thickening but no significant atherosclerotic plaque noted in the left common carotid artery. There is heterogeneous, irregular atherosclerotic plaque noted in the left internal carotid artery. There is intimal thickening but no significant atherosclerotic plaque noted in the left external carotid artery. Antegrade flow is noted in the left vertebral artery. Procedure Carotid Duplex [id number]. This is a Carotid Duplex examination using B-mode, color flow and specral Doppler. Exam performed in department. VL/Carotid Duplex Ultrasound Interpretation Summary Normal right extracranial internal carotid. Mild (<50%) stenosis left extracranial internal carotid. Patent and antegrade vertebrals bilaterally. Ordering Physician: Rafaela Baron Referring Physician: Rafaela Baron Performed By: Raquel Smith, CELY, RVT
== END | disposition home or self-care (01) ==
PROVIDERS: PCP Internal Medicine; Referring Provider Internal Medicine; Visit Provider Internal Medicine
DX: Z12.31 Encounter for screening mammogram for malignant neoplasm of breast (principal); I65.23 Occlusion and stenosis of bilateral carotid arteries
CPT/HCPCS: 77063; 77067; 93880

== ENCOUNTER → 2024-10-07 | Outpatient (CLI) | payer MEDICARE, SELFPAY ==
[2018-12-31 14:19] VITALS: BMI 28.1
--- NOTE | 2024-10-07 16:00 | MRI_ITS ---
PROCEDURE: BRAIN W/WO CONTRAST 10/07/2024 REASON FOR EXAM: HEARING LOSS TECHNIQUE: Brain MRI without and with intravenous contrast with additional dedicated imaging of the IACs. CONTRAST: 17 mL Clariscan COMPARISON: None FINDINGS: Brain: Ventricles and sulci are prominent consistent with age related involution. T2/FLAIR hyperintense foci in periventricular white matter indicates chronic microangiopathy (small vessel ischemic disease). There is no mass, mass effect, intra axial or extra-axial hemorrhage or indication of acute ischemia. Diffusion weighted images: No foci of restricted diffusion. Ventricles: No acute process Major Intracranial Vessels: Usual flow voids are present. Sinuses: Unremarkable 7th and 8th nerve complexes Mastoids: Clear. No effusions IACs: 7 and 8th nerves are intact. No masses in the internal auditory canal or the cerebellar pontine angle Cochlea, Vestibule and Semicircular Canals: Intact Middle Ear Cavities: Unremarkable MR appearance. No abnormal enhancement. MRI/Brain W/WO Contrast IMPRESSION: Unremarkable exam. 7th and 8th nerve complexes are intact. Reading [facility]
== END | disposition home or self-care (01) ==
PROVIDERS: PCP Internal Medicine; Referring Provider Otolaryngology Otolaryngic Allergy; Visit Provider Otolaryngology Otolaryngic Allergy
DX: H91.90 Unspecified hearing loss, unspecified ear (principal)
CPT/HCPCS: 70553; A9575

== ENCOUNTER → 2025-02-01 | Outpatient (CLI) | payer MEDICARE, SELFPAY ==
[2018-12-31 14:19] VITALS: BMI 28.1
--- NOTE | 2025-02-01 12:43 | ECHOCS_ITS ---
Reason For Study Reason For Study: CAD/ASHD Procedure This was a 2D Doppler, Color Flow transthoracic echocardiogram. The study was technically difficult. Contrast injection was performed. Exam performed in department. Left Ventricle Normal left ventricle. The left ventricular ejection fraction is 60 %. Stage 1 diastolic dysfunction. No regional wall motion abnormalities noted. Right Ventricle Normal RV size. Normal systolic function. Mitral Valve Normal mitral valve. The mitral papillary muscle appears thickened and/or calcified. The mitral valve chordae are thickened and/or calcified. Tricuspid Valve Normal tricuspid valve. Mild (1+) tricuspid valve insufficiency. Pulmonary artery systolic pressure is 25 mmHg. Aortic Valve Trisinus/trileaflet aortic valve. Pulmonic Valve Normal pulmonic valve. Great Vessels Normal aortic root. The pulmonary artery is normal size. Inferior vena cava collapse with respiration. Pericardium/Pleural No pericardial effusion. Medication 22 gauge I.V. with prn adaptor inserted into right arm. Diluted definity 4ml given slow IV push to enhance endocardial definition. MMode/2D Measurements & Calculations LVIDd: 4.6 cm IVSd: 1.1 cm Ao root diam: 3.5 cm LVIDs: 2.7 cm LVPWd: 0.76 cm FS: 40.7 % LAV(MOD-bp): 44.8 ml LA A4 area: 18.1 cm2 LA dimension(2D): 3.9 cm LAV(MOD-bp) Indexed: 23.6 ml/m2 LAV(MOD-sp2): 40.2 ml LAV(MOD-sp4): 49.9 ml TAPSE: 1.8 cm RA A4 area: 17.3 cm2 Time Measurements MV dec time: 0.24 sec Doppler Measurements & Calculations MV E max fredrick: 69.9 cm/sec Lat Peak E' Fredrick: 12.9 cm/sec Med Peak E' Fredrick: 7.1 cm/sec MV A max fredrick: 96.9 cm/sec E/E' lat: 5.4 E/E' med: 9.8 MV E/A: 0.72 MV V2 max: 98.4 cm/sec MV P1/2t max fredrick: 75.4 cm/sec Ao V2 max: 96.1 cm/sec MV max P.9 mmHg MV P1/2t: 87.1 msec Ao max P.7 mmHg MV V2 mean: 52.5 cm/sec MV dec slope: 253.5 cm/sec2 MV mean P.3 mmHg MV V2 VTI: 24.6 cm MVA(P1/2t): 2.5 cm2 LV V1 max: 79.5 cm/sec TR max fredrick: 234.3 cm/sec LV V1 max P.5 mmHg TR max P.0 mmHg ECHO/Echo Complete W/ Contrast Interpretation Summary The left ventricular ejection fraction is 60 %. Stage 1 diastolic dysfunction. Mild (1+) tricuspid valve insufficiency. The mitral valve chordae are thickened and/or calcified. The mitral papillary muscle appears thickened and/or calcified. Ordering Physician: Shaun Garcia Referring Physician: Shaun Garcia Performed By: Enirco Christopher and Student
== END | disposition home or self-care (01) ==
LOC: CVS 12:42
PROVIDERS: PCP Internal Medicine; Referring Provider Internal Medicine Cardiovascular Disease; Visit Provider Internal Medicine Cardiovascular Disease
DX: I25.10 Atherosclerotic heart disease of native coronary artery without angina pectoris (principal); I51.89 Other ill-defined heart diseases
CPT/HCPCS: 93306; Q9957; A4216; C8929

== ENCOUNTER → 2025-02-15 | Outpatient (CLI) | payer MEDICARE, SELFPAY ==
[2018-12-31 14:19] VITALS: BMI 28.1
--- NOTE | 2025-02-15 12:51 | CDU_ITS ---
Reason For Study Reason For Study: Carotid stenosis Rt. Velocities/BP Lt. Velocities/BP Prox CCA 88.3/21.2 cm/sec. Prox CCA 88.3/13.5 cm/sec. Mid CCA 83.9/17.9 cm/sec. Mid CCA 93.8/20.1 cm/sec. Dist CCA 67.4/15.7 cm/sec. Dist CCA 88.3/23.4 cm/sec. Prox ICA 61.1/17.1 cm/sec. Prox ICA 69.6/16.8 cm/sec. Mid ICA 82.8/21.2 cm/sec. Mid ICA 78.4/22.3 cm/sec. Dist ICA 69.6/22.3 cm/sec. Dist ICA 59.7/15.7 cm/sec. Rt. ICA/CCA = 1.0. Lt. ICA/CCA = 0.8. Prox ECA 98.6/10.2 cm/sec. Prox ECA 78.4/10.2 cm/sec. Rt. Vert. 29.1/6.4 cm/sec. Lt. Vert. 71.8/14.6 cm/sec. Right Extracranial There is intimal thickening but no significant atherosclerotic plaque noted in the right common carotid artery. There is heterogeneous, irregular atherosclerotic plaque noted in the right internal carotid artery. There is intimal thickening but no significant atherosclerotic plaque noted in the right external carotid artery. Antegrade flow is noted in the right vertebral artery. Left Extracranial There is intimal thickening but no significant atherosclerotic plaque noted in the left common carotid artery. There is heterogeneous, irregular atherosclerotic plaque noted in the left internal carotid artery. There is intimal thickening but no significant atherosclerotic plaque noted in the left external carotid artery. Antegrade flow is noted in the left vertebral artery. Procedure Carotid Duplex [id number]. This is a Carotid Duplex examination using B-mode, color flow and specral Doppler. Exam performed in department. VL/Carotid Duplex Ultrasound Interpretation Summary Mild (<50%) stenosis right extracranial internal carotid. Mild (<50%) stenosis left extracranial internal carotid. Patent and antegrade vertebrals bilaterally. Ordering Physician: Rafaela Baron Referring Physician: Rafaela Baron Performed By: Apple Morejon RVT
--- NOTE | 2025-02-15 12:51 | CDU_ITS ---
Reason For Study Reason For Study: Carotid stenosis Rt. Velocities/BP Lt. Velocities/BP Prox CCA 88.3/21.2 cm/sec. Prox CCA 88.3/13.5 cm/sec. Mid CCA 83.9/17.9 cm/sec. Mid CCA 93.8/20.1 cm/sec. Dist CCA 67.4/15.7 cm/sec. Dist CCA 88.3/23.4 cm/sec. Prox ICA 61.1/17.1 cm/sec. Prox ICA 69.6/16.8 cm/sec. Mid ICA 82.8/21.2 cm/sec. Mid ICA 78.4/22.3 cm/sec. Dist ICA 69.6/22.3 cm/sec. Dist ICA 59.7/15.7 cm/sec. Rt. ICA/CCA = 1.0. Lt. ICA/CCA = 0.8. Prox ECA 98.6/10.2 cm/sec. Prox ECA 78.4/10.2 cm/sec. Rt. Vert. 29.1/6.4 cm/sec. Lt. Vert. 71.8/14.6 cm/sec. Right Extracranial There is intimal thickening but no significant atherosclerotic plaque noted in the right common carotid artery. There is heterogeneous, irregular atherosclerotic plaque noted in the right internal carotid artery. There is intimal thickening but no significant atherosclerotic plaque noted in the right external carotid artery. Antegrade flow is noted in the right vertebral artery. Left Extracranial There is intimal thickening but no significant atherosclerotic plaque noted in the left common carotid artery. There is heterogeneous, irregular atherosclerotic plaque noted in the left internal carotid artery. There is intimal thickening but no significant atherosclerotic plaque noted in the left external carotid artery. Antegrade flow is noted in the left vertebral artery. Procedure Carotid Duplex [id number]. This is a Carotid Duplex examination using B-mode, color flow and specral Doppler. Exam performed in department. VL/Carotid Duplex Ultrasound Interpretation Summary Mild (<50%) stenosis right extracranial internal carotid. Mild (<50%) stenosis left extracranial internal carotid. Patent and antegrade vertebrals bilaterally. Ordering Physician: Rafaela Baron Referring Physician: Rafaela Baron Performed By: Apple Morejon RVT
--- NOTE | 2025-02-15 13:17 | BI_ITS ---
EXAM: SCRN MAMM (CAD)W/OLY BILAT DATE: 02/15/2025 CLINICAL HISTORY: F, Age 74 y/o , BILAT BRST SCREEN OLY ADD-ON TECHNIQUE: SCRN MAMM (CAD)W/OLY BILAT COMPARISON: Prior exam(s) were compared FINDINGS: TISSUE DENSITY: The breasts are heterogeneously dense, which may obscure small masses. Bilateral Breast Mammographic Findings: No suspicious masses, calcifications or other abnormalities are identified. BI/SCRN MAMM (CAD)W/OLY BILAT IMPRESSION: No mammographic evidence of malignancy in either breast OVERALL FINAL ASSESSMENT BI-RADS 1: NEGATIVE. RECOMMENDATION: Routine annual follow-up in 1 Year A letter with findings and recommendations will be mailed to the patient. Reading Location: [id number]
--- NOTE | 2025-02-15 13:17 | BI_ITS ---
EXAM: SCRN MAMM (CAD)W/OLY BILAT DATE: 02/15/2025 CLINICAL HISTORY: F, Age 74 y/o , BILAT BRST SCREEN OLY ADD-ON TECHNIQUE: SCRN MAMM (CAD)W/OLY BILAT COMPARISON: Prior exam(s) were compared FINDINGS: TISSUE DENSITY: The breasts are heterogeneously dense, which may obscure small masses. Bilateral Breast Mammographic Findings: No suspicious masses, calcifications or other abnormalities are identified. BI/SCRN MAMM (CAD)W/OLY BILAT IMPRESSION: No mammographic evidence of malignancy in either breast OVERALL FINAL ASSESSMENT BI-RADS 1: NEGATIVE. RECOMMENDATION: Routine annual follow-up in 1 Year A letter with findings and recommendations will be mailed to the patient. Reading Location: [id number]
--- NOTE | 2025-02-15 13:27 | BD_ITS ---
PROCEDURE: DEXA BONE DENSITY STUDY 02/15/2025 REASON FOR EXAM: F, age 74 y/o . Postmenopausal. TECHNIQUE: DEXA BONE DENSITY STUDY COMPARISON: Prior study dated February 12, 2023. FINDINGS: BMD and T-SCORES Lumbar spine: 1.162 g/cm2, T-score 0.8 Levels: L1 through L4 Change from prior: Loss of 2%. Left femoral neck: 1.128 g/cm2, T-score 2.5 Femoral neck comparison data not recommended for monitoring change. Left total hip: 1.044 g/cm2, T-score 0.8 Change from prior: Loss of 0.8%. Right femoral neck: 1.202 g/cm2, T-score 3.2 Femoral neck comparison data not recommended for monitoring change. Right total hip: 1.104 g/cm2, T-score 1.3 Change from prior: Loss of 0.5%. The World Health Organization has defined the following categories based on bone density: Normal bone density: T-score equal to or greater than -1.0 Osteopenia: T-score between -1.0 and -2.5 Osteoporosis: T-score equal to or less than -2.5 Delete tab The patient does meet the pharmacological treatment recommendations for prevention of osteoporosis. BD/Dexa Bone Density Study IMPRESSION: NORMAL T-SCORES. Recommend follow-up as clinically warranted. Reading Location: [id number]
--- NOTE | 2025-02-15 13:27 | BD_ITS ---
PROCEDURE: DEXA BONE DENSITY STUDY 02/15/2025 REASON FOR EXAM: F, age 74 y/o . Postmenopausal. TECHNIQUE: DEXA BONE DENSITY STUDY COMPARISON: Prior study dated February 12, 2023. FINDINGS: BMD and T-SCORES Lumbar spine: 1.162 g/cm2, T-score 0.8 Levels: L1 through L4 Change from prior: Loss of 2%. Left femoral neck: 1.128 g/cm2, T-score 2.5 Femoral neck comparison data not recommended for monitoring change. Left total hip: 1.044 g/cm2, T-score 0.8 Change from prior: Loss of 0.8%. Right femoral neck: 1.202 g/cm2, T-score 3.2 Femoral neck comparison data not recommended for monitoring change. Right total hip: 1.104 g/cm2, T-score 1.3 Change from prior: Loss of 0.5%. The World Health Organization has defined the following categories based on bone density: Normal bone density: T-score equal to or greater than -1.0 Osteopenia: T-score between -1.0 and -2.5 Osteoporosis: T-score equal to or less than -2.5 Delete tab The patient does meet the pharmacological treatment recommendations for prevention of osteoporosis. BD/Dexa Bone Density Study IMPRESSION: NORMAL T-SCORES. Recommend follow-up as clinically warranted. Reading Location: [id number]
== END | disposition home or self-care (01) ==
LOC: OPBD 12:49
PROVIDERS: PCP Internal Medicine; Referring Provider Internal Medicine; Visit Provider Internal Medicine
DX: Z12.31 Encounter for screening mammogram for malignant neoplasm of breast (principal); Z78.0 Asymptomatic menopausal state; I65.23 Occlusion and stenosis of bilateral carotid arteries
CPT/HCPCS: 77063; 77067; 77080; 93880